=== PATIENT | female | born 1940 | race Caucasian/White ===

== ENCOUNTER → 2016-06-25 | Outpatient (CLI) | payer MEDICARE, OTHER | END | disposition home or self-care (01) | LOC: CVU 09:29 | PROVIDERS: ATTEND Internal Medicine Cardiovascular Disease | DX: I65.23 Occlusion and stenosis of bilateral carotid arteries (principal); E11.9 Type 2 diabetes mellitus without complications; I10 Essential (primary) hypertension; E78.5 Hyperlipidemia, unspecified | CPT/HCPCS: 93880 ==

== ENCOUNTER 2016-07-09 09:35 | Observation (INO) | payer MEDICARE, OTHER ==
[2016-07-08 13:20] LABS: BLOOD UREA NITROGEN 17 mg/dL (7-18)
[2016-07-08 14:16] VITALS: BP 198/82
[~2016-07-09] VITALS: Ht 154.9 cm; Wt 76.4 kg
[~2016-07-09 09:35] MED LIST: ACET-1600 PO; ASPI-496 PO; CALC-126 PO; CARV6.252 PO; CHOL10003 PO; CLON0.1T PO; DAPS25TA PO; HYDR25TA6 PO; INSU100C5 SQ-INSULIN; INSU100V8 SQ; LEVO137T2 PO; NAPR220C2 PO; NYST15CR2 TP; PARO25TA3 PO; VALS320T2 PO; VITA150T PO
[2016-07-09] MEDS ORDERED: SODIUM CHLORIDE 0.9% 1,000 ML IV SCH (09:39)
[2016-07-09] MEDS ORDERED: hydrALAzine 20 MG/ML, 1ML ONE (11:31)
[2016-07-09] MEDS ORDERED: hydrALAzine 20 MG/ML, 1ML IV ONE (12:00)
[2016-07-09] MEDS ORDERED: MIDAZOLAM 1 MG/ML, 5ML ONE (12:05)
[2016-07-09] MEDS ORDERED: FENTANYL PF 100 MCG/2ML ONE (12:05)
[2016-07-09] MEDS ORDERED: VERAPAMIL 2.5 MG/ML, 2ML ONE (12:06)
[2016-07-09] MEDS ORDERED: HEPARIN 1,000 UNITS/ML, 10ML ONE (12:06)
[2016-07-09] MEDS ORDERED: LIDOCAINE 2%, 20ML ONE (12:06)
[2016-07-09] MEDS ORDERED: BIVALIRUDIN 250 MG ONE (13:07)
[2016-07-09] MEDS ORDERED: TICAGRELOR 90 MG TABLET ONE (13:07)
[2016-07-09] MEDS ORDERED: FUROSEMIDE 40 MG/4 ML IV ONE (14:00)
[2016-07-09] MEDS: SODIUM CHLORIDE 0.9% 1,000 ML IV SCH ×2 (15:24→21:13)
[2016-07-09 16:30] VITALS: BP 112/55
[2016-07-09] MEDS: INSULIN ASPART 100 UNITS/ML, 3ML PEN LOW DOSE SS SQ-INSULIN SCH ×2 (17:36→21:00)
[2016-07-09 20:26] VITALS: BP 139/87
[2016-07-09] MEDS: INSULIN DETEMIR 100 UNITS/ML, PEN SQ-INSULIN SCH (21:12)
[2016-07-09] MEDS: TICAGRELOR 90 MG TABLET PO SCH (21:12)
[2016-07-09] MEDS ORDERED: ACETAMINOPHEN 325 MG TABLET PO PRN (21:30)
[2016-07-10 01:24] VITALS: BP 146/80
[2016-07-10 05:31] LABS: BLOOD UREA NITROGEN 19 mg/dL (7-18)
[2016-07-10] MEDS ORDERED: LEVOTHYROXINE 137 MCG TABLET PO SCH (06:00)
[2016-07-10 07:40] VITALS: BP 152/76
[2016-07-10] MEDS ORDERED: NAPROXEN 500 MG TABLET PO ONE (08:00)
[2016-07-10] MEDS ORDERED: POTASSIUM CHLORIDE 10 MEQ TABLET.ER PO SCH (08:00)
[2016-07-10] MEDS: TICAGRELOR 90 MG TABLET PO SCH (08:11)
[2016-07-10] MEDS: PAROXETINE 10 MG TABLET PO SCH ×2 (08:12→09:28)
[2016-07-10] MEDS: INSULIN DETEMIR 100 UNITS/ML, PEN SQ-INSULIN SCH (08:12)
[2016-07-10] MEDS: INSULIN ASPART 100 UNITS/ML, 3ML PEN LOW DOSE SS SQ-INSULIN SCH ×2 (08:13→12:19)
[2016-07-10] MEDS ORDERED: CHOLECALCIFEROL 1,000 UNIT TABLET PO SCH (09:00)
[2016-07-10] MEDS ORDERED: VALSARTAN 320 MG TABLET PO SCH (09:00)
[2016-07-10] MEDS ORDERED: FUROSEMIDE 40 MG TABLET PO SCH (09:00)
[2016-07-10] MEDS ORDERED: ISOSORBIDE MONONITRATE ER 30 MG TABLET PO SCH (09:00)
[2016-07-10] MEDS ORDERED: CARVEDILOL 6.25 MG TABLET PO SCH (09:00)
[2016-07-10] MEDS ORDERED: ASPIRIN 81 MG TABLET EC PO SCH (09:00)
[2016-07-10] MEDS ORDERED: TICA90TA PO (10:02)
[2016-07-10] MEDS ORDERED: ASPI-621 PO (10:02)
== END 2016-07-10 14:45 | disposition home or self-care (01) ==
LOC: CACL 09:35 → ORIP 13:48 → 5SO 15:29 → DCLOUNGE 07-10 13:48
PROVIDERS: ADMIT Internal Medicine Cardiovascular Disease; ATTEND Internal Medicine Cardiovascular Disease
DX: I25.119 Atherosclerotic heart disease of native coronary artery with unspecified angina pectoris (principal); I27.2 Other secondary pulmonary hypertension; I10 Essential (primary) hypertension; E11.9 Type 2 diabetes mellitus without complications; E78.2 Mixed hyperlipidemia; R07.89 Other chest pain
CPT/HCPCS: 36415; 71020; 80048; 82040; 82947; 82962; 85014; 85018; 85025; 85610; 85730; 93456; C1725; C1769; C1874; C1887; C1894; C9600; G0378; J0360; J0583; J1644; J1815; J1940; J2250; J3010; J3490; J7030; Q9967

== ENCOUNTER 2016-07-17 15:24 | Inpatient (IN) | payer MEDICARE, OTHER ==
[~2016-07-17] VITALS: Ht 154.9 cm; Wt 76.8 kg
[~2016-07-17 15:24] MED LIST changes: +ASPI-621 PO; +TICA90TA PO
[2016-07-17] MEDS ORDERED: SODIUM CHLORIDE FLUSH 10ML SYR IVF ONE (16:30)
[2016-07-17] MEDS ORDERED: MORPHINE SULFATE 4 MG/ML, 1ML IVPush PRN (17:00)
[2016-07-17] MEDS ORDERED: ONDANSETRON 2MG/ML, 2ML IVPush ONE (17:00)
[2016-07-17 17:02] LABS: BLOOD UREA NITROGEN 12 mg/dL (7-18)
[2016-07-17] MEDS ORDERED: MORPHINE SULFATE 4 MG/ML, 1ML ONE (17:02)
[2016-07-17] MEDS ORDERED: ONDANSETRON 2MG/ML, 2ML ONE (17:02)
[2016-07-17] MEDS ORDERED: OMNIPAQUE 350 MG/ML, 100ML BOTTLE ONE (19:52)
[2016-07-17] MEDS ORDERED: SODIUM CHLORIDE FLUSH 10ML SYR IVF PRN (21:30)
[2016-07-17 22:39] VITALS: BP 179/96
[2016-07-17] MEDS ORDERED: INSU100V8 SQ (22:46)
[2016-07-17 23:30] VITALS: BP 167/84
[2016-07-17] MEDS ORDERED: TEMAZEPAM 15 MG CAPSULE PO PRN (23:30)
[2016-07-17] MEDS ORDERED: LABETALOL 5MG/ML, 20ML IV PRN (23:30)
[2016-07-17] MEDS: INSULIN REGULAR 100 UNITS/ML, 3ML VIAL SQ-INSULIN SCH (23:53)
[2016-07-18] MEDS: TICAGRELOR 90 MG TABLET PO SCH ×3 (00:37→21:04)
[2016-07-18] MEDS: CARVEDILOL 6.25 MG TABLET PO SCH ×2 (00:38→16:49)
[2016-07-18] MEDS: ENOXAPARIN 40 MG/0.4 ML SQ SCH ×2 (00:38→23:54)
[2016-07-18] MEDS: INSULIN DETEMIR 100 UNITS/ML, PEN SQ-INSULIN SCH ×5 (00:39→23:53)
[2016-07-18] MEDS: ACETAMINOPHEN 325 MG TABLET PO PRN ×4 (02:05→21:04)
[2016-07-18 04:00] VITALS: BP 143/76
[2016-07-18 04:50] LABS: BLOOD UREA NITROGEN 12 mg/dL (7-18)
[2016-07-18] MEDS: LEVOTHYROXINE 137 MCG TABLET PO SCH (06:44)
[2016-07-18] MEDS: INSULIN REGULAR 100 UNITS/ML, 3ML VIAL SQ-INSULIN SCH ×5 (07:00→21:04)
[2016-07-18 08:57] VITALS: BP 131/79
[2016-07-18] MEDS ORDERED: Paroxetine Hcl PO SCH (09:00)
[2016-07-18] MEDS ORDERED: CARVEDILOL 6.25 MG TABLET PO SCH (09:00)
[2016-07-18] MEDS ORDERED: TICAGRELOR 90 MG TABLET PO SCH (09:00)
[2016-07-18 09:23] LABS: IS PT STATUS REG ER OR PRE ER? NO
[2016-07-18] MEDS: CALCIUM/VITAMIN D3 250-125 TABLET PO SCH (10:53)
[2016-07-18] MEDS: VALSARTAN 320 MG TABLET PO SCH (10:53)
[2016-07-18] MEDS: FUROSEMIDE 40 MG/4 ML IV SCH (10:53)
[2016-07-18] MEDS: DAPSONE 100 MG TABLET PO SCH (10:54)
[2016-07-18] MEDS: CHOLECALCIFEROL 1,000 UNIT TABLET PO SCH (10:54)
[2016-07-18] MEDS: MULTIVITS,STRESS FORMULA 1 TABLET PO SCH (10:54)
[2016-07-18] MEDS: ASPIRIN 81 MG TABLET EC PO SCH (10:54)
[2016-07-18] MEDS: NYSTATIN/TRIAMCINOLONE CRM 15GM TP SCH ×2 (11:38→21:04)
[2016-07-18] MEDS: PAROXETINE 10 MG TABLET PO SCH ×2 (11:39→17:00)
[2016-07-18 14:20] VITALS: BP 188/78
[2016-07-18 14:22] VITALS: BP 136/75
[2016-07-18] MEDS ORDERED: DEXTROSE 50%, 50ML SYRINGE ONE (16:23)
[2016-07-18] MEDS: DEXTROSE 50%, 50ML SYRINGE IVPush PRN (16:25)
[2016-07-18] MEDS ORDERED: GLUCAGON 1 MG IM PRN (16:30)
[2016-07-18] MEDS ORDERED: DEXTROSE 4 GM TAB.CHEW PO PRN (16:30)
[2016-07-18 20:20] VITALS: BP 168/78
[2016-07-18] MEDS: SODIUM CHLORIDE FLUSH 10ML SYR IVF SCH (21:07)
[2016-07-19 03:30] VITALS: BP 168/80
[2016-07-19] MEDS: ACETAMINOPHEN 325 MG TABLET PO PRN ×3 (04:50→21:42)
[2016-07-19] MEDS: DOCUSATE 100 MG CAPSULE PO PRN (04:50)
[2016-07-19 06:00] LABS: BLOOD UREA NITROGEN 16 mg/dL (7-18)
[2016-07-19] MEDS: CHOLECALCIFEROL 1,000 UNIT TABLET PO SCH (08:19)
[2016-07-19] MEDS: TICAGRELOR 90 MG TABLET PO SCH ×2 (08:20→21:31)
[2016-07-19] MEDS: CALCIUM/VITAMIN D3 250-125 TABLET PO SCH (08:20)
[2016-07-19] MEDS: ASPIRIN 81 MG TABLET EC PO SCH (08:20)
[2016-07-19] MEDS: VALSARTAN 320 MG TABLET PO SCH (08:20)
[2016-07-19] MEDS: MULTIVITS,STRESS FORMULA 1 TABLET PO SCH (08:20)
[2016-07-19] MEDS: SODIUM CHLORIDE FLUSH 10ML SYR IVF SCH ×2 (08:21→21:31)
[2016-07-19] MEDS: FUROSEMIDE 40 MG/4 ML IV SCH (08:21)
[2016-07-19] MEDS: DAPSONE 100 MG TABLET PO SCH (08:21)
[2016-07-19] MEDS: NYSTATIN/TRIAMCINOLONE CRM 15GM TP SCH ×2 (08:22→21:32)
[2016-07-19] MEDS: INSULIN DETEMIR 100 UNITS/ML, PEN SQ-INSULIN SCH ×2 (08:23→21:30)
[2016-07-19] MEDS: PAROXETINE 25 MG HOMEMEDPO SCH ×2 (08:24→18:40)
[2016-07-19] MEDS: INSULIN REGULAR 100 UNITS/ML, 3ML VIAL SQ-INSULIN SCH ×4 (08:24→21:31)
[2016-07-19] MEDS: LEVOTHYROXINE 137 MCG TABLET PO SCH (08:27)
[2016-07-19 08:30] VITALS: BP 156/82
[2016-07-19 14:30] VITALS: BP 138/80
[2016-07-19] MEDS: CARVEDILOL 6.25 MG TABLET PO SCH (18:39)
[2016-07-19 20:00] VITALS: BP 142/78
[2016-07-19] MEDS: ENOXAPARIN 40 MG/0.4 ML SQ SCH (21:30)
[2016-07-20 02:00] VITALS: BP 106/70
[2016-07-20] MEDS: LEVOTHYROXINE 137 MCG TABLET PO SCH (06:16)
[2016-07-20 06:29] LABS: BLOOD UREA NITROGEN 23 mg/dL (7-18)
[2016-07-20 07:11] VITALS: BP 126/75
[2016-07-20] MEDS: INSULIN REGULAR 100 UNITS/ML, 3ML VIAL SQ-INSULIN SCH ×4 (08:54→21:00)
[2016-07-20] MEDS: PAROXETINE 25 MG HOMEMEDPO SCH ×2 (08:55→17:10)
[2016-07-20] MEDS: CHOLECALCIFEROL 1,000 UNIT TABLET PO SCH (08:56)
[2016-07-20] MEDS: CALCIUM/VITAMIN D3 250-125 TABLET PO SCH (08:56)
[2016-07-20] MEDS: TICAGRELOR 90 MG TABLET PO SCH ×2 (08:56→21:37)
[2016-07-20] MEDS: MULTIVITS,STRESS FORMULA 1 TABLET PO SCH (08:56)
[2016-07-20] MEDS: VALSARTAN 320 MG TABLET PO SCH (08:56)
[2016-07-20] MEDS: FUROSEMIDE 40 MG/4 ML IV SCH (08:57)
[2016-07-20] MEDS: SODIUM CHLORIDE FLUSH 10ML SYR IVF SCH ×2 (08:57→21:37)
[2016-07-20] MEDS: ASPIRIN 81 MG TABLET EC PO SCH (08:57)
[2016-07-20] MEDS: DAPSONE 100 MG TABLET PO SCH (08:57)
[2016-07-20] MEDS: NYSTATIN/TRIAMCINOLONE CRM 15GM TP SCH ×2 (08:59→21:00)
[2016-07-20] MEDS: INSULIN DETEMIR 100 UNITS/ML, PEN SQ-INSULIN SCH ×3 (09:03→21:38)
[2016-07-20] MEDS: ACETAMINOPHEN 325 MG TABLET PO PRN ×2 (11:36→21:37)
[2016-07-20] MEDS ORDERED: ALUMINUM/MAG/SIMETHICONE 30 ML UDC PO PRN (12:30)
[2016-07-20] MEDS ORDERED: INSULIN REGULAR 100 UNITS/ML, 3ML VIAL SQ-INSULIN ONE (15:00)
[2016-07-20 15:55] VITALS: BP 125/73
[2016-07-20] MEDS: CARVEDILOL 6.25 MG TABLET PO SCH (17:09)
[2016-07-20 19:30] VITALS: BP 112/71
[2016-07-20] MEDS: ENOXAPARIN 40 MG/0.4 ML SQ SCH (21:37)
[2016-07-21 02:35] VITALS: BP 123/77
[2016-07-21] MEDS: LEVOTHYROXINE 137 MCG TABLET PO SCH (06:26)
[2016-07-21 07:44] VITALS: BP 134/74
[2016-07-21] MEDS: INSULIN REGULAR 100 UNITS/ML, 3ML VIAL SQ-INSULIN SCH ×4 (08:48→20:38)
[2016-07-21] MEDS: SODIUM CHLORIDE FLUSH 10ML SYR IVF SCH ×2 (09:00→20:39)
[2016-07-21] MEDS: DAPSONE 100 MG TABLET PO SCH (09:00)
[2016-07-21] MEDS ORDERED: FENTANYL PF 100 MCG/2ML ONE (09:08)
[2016-07-21] MEDS ORDERED: MIDAZOLAM 1 MG/ML, 5ML ONE (09:08)
[2016-07-21] MEDS ORDERED: PROPOFOL 10 MG/ML, 20ML ONE (09:18)
[2016-07-21] MEDS: MULTIVITS,STRESS FORMULA 1 TABLET PO SCH (12:02)
[2016-07-21] MEDS: TICAGRELOR 90 MG TABLET PO SCH ×2 (12:02→20:38)
[2016-07-21] MEDS: CALCIUM/VITAMIN D3 250-125 TABLET PO SCH (12:03)
[2016-07-21] MEDS: CARVEDILOL 6.25 MG TABLET PO SCH ×2 (12:03→17:45)
[2016-07-21] MEDS: VALSARTAN 320 MG TABLET PO SCH (12:03)
[2016-07-21] MEDS: CHOLECALCIFEROL 1,000 UNIT TABLET PO SCH (12:03)
[2016-07-21] MEDS: ASPIRIN 81 MG TABLET EC PO SCH (12:03)
[2016-07-21] MEDS: FUROSEMIDE 40 MG/4 ML IV SCH (12:04)
[2016-07-21] MEDS: PAROXETINE 25 MG HOMEMEDPO SCH ×2 (12:06→18:00)
[2016-07-21 13:46] VITALS: BP 126/77
[2016-07-21] MEDS: NYSTATIN/TRIAMCINOLONE CRM 15GM TP SCH ×2 (16:57→20:38)
[2016-07-21] MEDS: DEXTROSE 50%, 50ML SYRINGE IVPush PRN (17:09)
[2016-07-21] MEDS ORDERED: INSULIN ASPART 100 UNITS/ML, PEN SQ-INSULIN SCH (17:30)
[2016-07-21 18:49] VITALS: BP 133/76
[2016-07-21] MEDS: ACETAMINOPHEN 325 MG TABLET PO PRN (20:38)
[2016-07-21] MEDS: INSULIN DETEMIR 100 UNITS/ML, PEN SQ-INSULIN SCH (20:38)
[2016-07-21] MEDS: ENOXAPARIN 40 MG/0.4 ML SQ SCH (20:38)
[2016-07-21] MEDS: NITROGLYCERIN 0.4 MG BOTTLE (25 TABS) SL PRN ×3 (22:27→22:37)
[2016-07-21] MEDS ORDERED: NITROGLYCERIN 0.4 MG/SPRAY SL PRN (22:30)
[2016-07-21] MEDS ORDERED: MORPHINE SULFATE 4 MG/ML, 1ML IVPush STA (22:59)
[2016-07-21] MEDS ORDERED: MORPHINE SULFATE 4 MG/ML, 1ML ONE (23:01)
[2016-07-22] MEDS ORDERED: NITROGLYCERIN/D5W PMX 250 ML IV PRN
[2016-07-22] MEDS ORDERED: MORPHINE SULFATE 4 MG/ML, 1ML IVPush ONE (06:00)
[2016-07-22] MEDS: LEVOTHYROXINE 137 MCG TABLET PO SCH (06:20)
[2016-07-22] MEDS: INSULIN REGULAR 100 UNITS/ML, 3ML VIAL SQ-INSULIN SCH (06:24)
[2016-07-22 06:39] VITALS: BP 152/58
[2016-07-22 06:42] LABS: BLOOD UREA NITROGEN 27 mg/dL (7-18)
[2016-07-22 06:46] LABS: ASPARTATE AMINO TRANSFERASE 28 U/L (15-37)
[2016-07-22] MEDS ORDERED: INSULIN DETEMIR 100 UNITS/ML, PEN SQ-INSULIN STA (07:39)
[2016-07-22 08:01] LABS: IS PT STATUS REG ER OR PRE ER? NO
[2016-07-22] MEDS ORDERED: MAALOX/HYOSCYAMINE/LIDOCAINE 45 ML BOTTLE PO ONE (08:30)
[2016-07-22] MEDS ORDERED: ONDANSETRON 2MG/ML, 2ML ONE (08:43)
[2016-07-22] MEDS: MORPHINE SULFATE 4 MG/ML, 1ML IVPush PRN ×2 (08:51→09:09)
[2016-07-22] MEDS: CARVEDILOL 6.25 MG TABLET PO SCH ×2 (09:00→17:24)
[2016-07-22] MEDS: CHOLECALCIFEROL 1,000 UNIT TABLET PO SCH (09:00)
[2016-07-22] MEDS: ONDANSETRON 2MG/ML, 2ML IVPush PRN (09:06)
[2016-07-22] MEDS: PAROXETINE 25 MG HOMEMEDPO SCH ×2 (09:12→21:00)
[2016-07-22] MEDS: TICAGRELOR 90 MG TABLET PO SCH ×2 (09:13→20:39)
[2016-07-22] MEDS: FUROSEMIDE 40 MG/4 ML IV SCH (09:13)
[2016-07-22] MEDS: SODIUM CHLORIDE FLUSH 10ML SYR IVF SCH (09:13)
[2016-07-22] MEDS: ASPIRIN 81 MG TABLET EC PO SCH (09:14)
[2016-07-22] MEDS: DAPSONE 100 MG TABLET PO SCH (09:15)
[2016-07-22] MEDS: VALSARTAN 320 MG TABLET PO SCH (09:16)
[2016-07-22] MEDS: INSULIN DETEMIR 100 UNITS/ML, PEN SQ-INSULIN SCH (09:17)
[2016-07-22] MEDS: NYSTATIN/TRIAMCINOLONE CRM 15GM TP SCH (09:18)
[2016-07-22] MEDS: CALCIUM/VITAMIN D3 250-125 TABLET PO SCH (09:26)
[2016-07-22] MEDS: MULTIVITS,STRESS FORMULA 1 TABLET PO SCH (09:27)
[2016-07-22] MEDS ORDERED: REGULAR INSULIN 62.5 UNITS in SODIUM CHLORIDE 0.9% 249.375 ML IV PRN (09:30)
[2016-07-22 11:32] LABS: IS PT STATUS REG ER OR PRE ER? NO
[2016-07-22] MEDS ORDERED: FENTANYL PF 100 MCG/2ML ONE (12:11)
[2016-07-22] MEDS ORDERED: VERAPAMIL 2.5 MG/ML, 2ML ONE (12:11)
[2016-07-22] MEDS ORDERED: MIDAZOLAM 1 MG/ML, 5ML ONE (12:11)
[2016-07-22] MEDS ORDERED: NITROGLYCERIN 5 MG/ML, 10ML ONE (12:11)
[2016-07-22] MEDS ORDERED: HEPARIN 1,000 UNITS/ML, 10ML ONE (12:12)
[2016-07-22] MEDS ORDERED: LIDOCAINE 2%, 20ML ONE (12:12)
[2016-07-22 15:10] LABS: BLOOD UREA NITROGEN 35 mg/dL (7-18)
[2016-07-22] MEDS: ENOXAPARIN 30 MG/0.3 ML SQ SCH (20:26)
[2016-07-22 21:27] LABS: BLOOD UREA NITROGEN 39 mg/dL (7-18)
[2016-07-23] MEDS: INSULIN DETEMIR 100 UNITS/ML, PEN SQ-INSULIN SCH ×3 (01:28→20:08)
[2016-07-23] MEDS: SODIUM CHLORIDE FLUSH 10ML SYR IVF SCH ×3 (01:30→20:06)
[2016-07-23] MEDS: NYSTATIN/TRIAMCINOLONE CRM 15GM TP SCH ×3 (01:30→20:08)
[2016-07-23] MEDS: ATORVASTATIN 40 MG TABLET PO SCH ×2 (01:30→20:07)
[2016-07-23] MEDS ORDERED: INSULIN ASPART 100 UNITS/ML, PEN SQ-INSULIN SCH (02:00)
[2016-07-23] MEDS: INSULIN ASPART 100 UNITS/ML, PEN SQ-INSULIN SCH ×7 (02:44→23:00)
[2016-07-23 04:00] VITALS: BP 146/54
[2016-07-23 04:58] LABS: BLOOD UREA NITROGEN 44 mg/dL (7-18)
[2016-07-23] MEDS: LEVOTHYROXINE 137 MCG TABLET PO SCH (06:28)
[2016-07-23] MEDS: CARVEDILOL 6.25 MG TABLET PO SCH (07:35)
[2016-07-23] MEDS: PAROXETINE 25 MG HOMEMEDPO SCH ×2 (09:00→20:05)
[2016-07-23] MEDS: DAPSONE 100 MG TABLET PO SCH (09:00)
[2016-07-23] MEDS: VALSARTAN 320 MG TABLET PO SCH (09:00)
[2016-07-23] MEDS: TICAGRELOR 90 MG TABLET PO SCH ×2 (09:27→20:06)
[2016-07-23] MEDS: MULTIVITS,STRESS FORMULA 1 TABLET PO SCH (09:27)
[2016-07-23] MEDS: FUROSEMIDE 40 MG/4 ML IV SCH (09:27)
[2016-07-23] MEDS: ASPIRIN 81 MG TABLET EC PO SCH (09:28)
[2016-07-23] MEDS: CALCIUM/VITAMIN D3 250-125 TABLET PO SCH (09:29)
[2016-07-23] MEDS: CHOLECALCIFEROL 1,000 UNIT TABLET PO SCH (09:30)
[2016-07-23] MEDS: MORPHINE SULFATE 4 MG/ML, 1ML IVPush PRN (12:42)
[2016-07-23] MEDS: ISOSORBIDE MONONITRATE ER 30 MG TABLET PO SCH (15:18)
[2016-07-23] MEDS: CARVEDILOL 12.5 MG TABLET PO SCH (17:00)
[2016-07-23 17:51] VITALS: BP 89/54
[2016-07-23 18:40] VITALS: BP 95/57
[2016-07-23] MEDS: ENOXAPARIN 30 MG/0.3 ML SQ SCH (20:05)
[2016-07-23] MEDS: ACETAMINOPHEN 325 MG TABLET PO PRN (20:08)
[2016-07-23] MEDS ORDERED: INSULIN DETEMIR 100 UNITS/ML, PEN SQ-INSULIN SCH (21:00)
[2016-07-24 01:30] VITALS: BP 113/67
[2016-07-24] MEDS: INSULIN ASPART 100 UNITS/ML, PEN SQ-INSULIN SCH ×6 (03:18→23:00)
[2016-07-24 06:06] LABS: BLOOD UREA NITROGEN 61 mg/dL (7-18)
[2016-07-24] MEDS: LEVOTHYROXINE 137 MCG TABLET PO SCH (06:23)
[2016-07-24 07:09] VITALS: BP_SYST 101; BP_SYST 97; BP_DIAS 62
[2016-07-24] MEDS: INSULIN DETEMIR 100 UNITS/ML, PEN SQ-INSULIN SCH ×2 (08:18→20:41)
[2016-07-24] MEDS: ASPIRIN 81 MG TABLET EC PO SCH (08:19)
[2016-07-24] MEDS: CHOLECALCIFEROL 1,000 UNIT TABLET PO SCH (08:19)
[2016-07-24] MEDS: NYSTATIN/TRIAMCINOLONE CRM 15GM TP SCH ×2 (08:20→20:41)
[2016-07-24] MEDS: CALCIUM/VITAMIN D3 250-125 TABLET PO SCH (08:20)
[2016-07-24] MEDS: VALSARTAN 320 MG TABLET PO SCH (08:20)
[2016-07-24] MEDS: CARVEDILOL 12.5 MG TABLET PO SCH ×2 (08:20→17:00)
[2016-07-24] MEDS: TICAGRELOR 90 MG TABLET PO SCH ×2 (08:20→20:40)
[2016-07-24] MEDS: MULTIVITS,STRESS FORMULA 1 TABLET PO SCH (08:20)
[2016-07-24] MEDS: FUROSEMIDE 40 MG TABLET PO SCH (08:20)
[2016-07-24] MEDS: ISOSORBIDE MONONITRATE ER 30 MG TABLET PO SCH (08:20)
[2016-07-24] MEDS: PAROXETINE 25 MG HOMEMEDPO SCH ×2 (08:21→20:39)
[2016-07-24] MEDS: DAPSONE 100 MG TABLET PO SCH (08:21)
[2016-07-24] MEDS: SODIUM CHLORIDE FLUSH 10ML SYR IVF SCH ×2 (08:21→20:40)
[2016-07-24] MEDS: ACETAMINOPHEN 325 MG TABLET PO PRN ×2 (09:55→20:41)
[2016-07-24] MEDS ORDERED: SODIUM CHLORIDE 0.9%, 500ML IVBOLUS ONE (13:00)
[2016-07-24 13:18] VITALS: BP 89/54
[2016-07-24 14:40] VITALS: BP 100/62
[2016-07-24 17:49] VITALS: BP 98/62
[2016-07-24] MEDS: ONDANSETRON 2MG/ML, 2ML IVPush PRN (17:53)
[2016-07-24 19:53] VITALS: BP 122/70
[2016-07-24] MEDS: ENOXAPARIN 30 MG/0.3 ML SQ SCH (20:39)
[2016-07-24] MEDS: ATORVASTATIN 40 MG TABLET PO SCH (20:40)
[2016-07-25 03:00] VITALS: BP 125/70
[2016-07-25] MEDS: INSULIN ASPART 100 UNITS/ML, PEN SQ-INSULIN SCH ×3 (03:00→12:25)
[2016-07-25 05:32] LABS: BLOOD UREA NITROGEN 68 mg/dL (7-18)
[2016-07-25] MEDS: LEVOTHYROXINE 137 MCG TABLET PO SCH (06:27)
[2016-07-25] MEDS: ACETAMINOPHEN 325 MG TABLET PO PRN (06:28)
[2016-07-25] MEDS: DAPSONE 100 MG TABLET PO SCH (09:00)
[2016-07-25] MEDS ORDERED: VALSARTAN 160 MG TABLET PO SCH (09:00)
[2016-07-25] MEDS: NYSTATIN/TRIAMCINOLONE CRM 15GM TP SCH (09:00)
[2016-07-25] MEDS: FUROSEMIDE 40 MG TABLET PO SCH (09:00)
[2016-07-25] MEDS ORDERED: VALSARTAN 80 MG TABLET PO SCH (09:00)
[2016-07-25] MEDS: PAROXETINE 25 MG HOMEMEDPO SCH (09:00)
[2016-07-25] MEDS ORDERED: FUROSEMIDE 40 MG/4 ML ONE (09:15)
[2016-07-25 09:17] VITALS: BP 117/70
[2016-07-25] MEDS: ISOSORBIDE MONONITRATE ER 30 MG TABLET PO SCH (09:19)
[2016-07-25] MEDS: CHOLECALCIFEROL 1,000 UNIT TABLET PO SCH (09:19)
[2016-07-25] MEDS: INSULIN DETEMIR 100 UNITS/ML, PEN SQ-INSULIN SCH (09:19)
[2016-07-25] MEDS: ASPIRIN 81 MG TABLET EC PO SCH (09:19)
[2016-07-25] MEDS: MULTIVITS,STRESS FORMULA 1 TABLET PO SCH (09:19)
[2016-07-25] MEDS: TICAGRELOR 90 MG TABLET PO SCH (09:19)
[2016-07-25] MEDS: CALCIUM/VITAMIN D3 250-125 TABLET PO SCH (09:20)
[2016-07-25] MEDS: CARVEDILOL 12.5 MG TABLET PO SCH (09:20)
[2016-07-25] MEDS: SODIUM CHLORIDE FLUSH 10ML SYR IVF SCH (09:20)
[2016-07-25] MEDS ORDERED: FUROSEMIDE 40 MG/4 ML IV ONE (09:30)
[2016-07-25] MEDS ORDERED: FURO40TA6 PO (12:18)
[2016-07-25] MEDS ORDERED: VALS80TA3 PO (12:18)
[2016-07-25] MEDS ORDERED: ISOS30TA8 PO (12:18)
[2016-07-25] MEDS ORDERED: CARV12.543 PO (12:18)
[2016-07-25 12:24] VITALS: BP 99/63
[2016-07-25] MEDS: DOCUSATE 100 MG CAPSULE PO PRN (12:24)
[2016-07-25 12:38] VITALS: BP 99/60
== END 2016-07-25 15:15 | DRG 286 ==
LOC: ED 17:17 → EDIP 21:01 → 5SO 22:24 → CCU 07-22 00:09 → 5SO 07-23 17:45
PROVIDERS: ADMIT Internal Medicine; ATTEND Internal Medicine
PROC: B246ZZ4 Ultrasonography of Right and Left Heart, Transesophageal (ICD-10-PCS; 2016-07-21)
PROC: 4A023N7 Measurement of Cardiac Sampling and Pressure, Left Heart, Percutaneous Approach (ICD-10-PCS; principal; 2016-07-22)
PROC: B2151ZZ Fluoroscopy of Left Heart using Low Osmolar Contrast (ICD-10-PCS; 2016-07-22)
PROC: B2111ZZ Fluoroscopy of Multiple Coronary Arteries using Low Osmolar Contrast (ICD-10-PCS; 2016-07-22)
DX: I11.0 Hypertensive heart disease with heart failure (principal); N17.0 Acute kidney failure with tubular necrosis; E87.2 Acidosis; Z88.1 Allergy status to other antibiotic agents; I25.10 Atherosclerotic heart disease of native coronary artery without angina pectoris; I27.2 Other secondary pulmonary hypertension; Z79.4 Long term (current) use of insulin; D64.9 Anemia, unspecified; E11.65 Type 2 diabetes mellitus with hyperglycemia; I50.43 Acute on chronic combined systolic (congestive) and diastolic (congestive) heart failure; E78.5 Hyperlipidemia, unspecified; I05.2 Rheumatic mitral stenosis with insufficiency; Z66 Do not resuscitate; Z96.641 Presence of right artificial hip joint; Z83.3 Family history of diabetes mellitus; Z87.891 Personal history of nicotine dependence; Z90.49 Acquired absence of other specified parts of digestive tract; Z95.5 Presence of coronary angioplasty implant and graft; Z90.710 Acquired absence of both cervix and uterus; Z88.8 Allergy status to other drugs, medicaments and biological substances; Z88.2 Allergy status to sulfonamides
CPT/HCPCS: 36415; 71010; 71020; 71275; 80048; 80053; 82040; 82947; 82962; 83735; 83880; 84484; 85025; 85520; 85610; 85730; 87081; 93005; 93306; 93308; 93312; 93321; 93325; 93458; 93970; 96374; 96375; C1894; J1644; J1650; J1815; J1940; J2250; J2405; J2704; J3010; J3490; Q9967; J7040

== ENCOUNTER 2016-10-10 13:32 | Inpatient (IN) | payer MEDICARE, OTHER ==
[~2016-10-10] VITALS: Ht 154.9 cm; Wt 68.7 kg
[~2016-10-10 13:32] MED LIST changes: +CARV12.543 PO; +FURO40TA6 PO; +ISOS30TA8 PO; +VALS80TA3 PO
[2016-10-10] MEDS ORDERED: SODIUM CHLORIDE FLUSH 10ML SYR IVF ONE (14:00)
[2016-10-10 14:18] LABS: ASPARTATE AMINO TRANSFERASE 22 U/L (15-37); BLOOD UREA NITROGEN 21 mg/dL (7-18)
[2016-10-10 14:23] LABS: IS PT STATUS REG ER OR PRE ER? YES
[2016-10-10] MEDS ORDERED: morphine SULFATE 10 MG/ML, 1ML IVPush PRN (16:30)
[2016-10-10] MEDS ORDERED: INSULIN ASPART 100 UNITS/ML, PEN SQ-INSULIN SCH (16:30)
[2016-10-10] MEDS ORDERED: DEXTROSE 50%, 50ML SYRINGE IVPush PRN (16:30)
[2016-10-10] MEDS ORDERED: DEXTROSE 4 GM TAB.CHEW PO PRN (16:30)
[2016-10-10] MEDS ORDERED: BISACODYL 10 MG SUPP PR PRN (16:30)
[2016-10-10] MEDS ORDERED: DOCUSATE 100 MG CAPSULE PO PRN (16:30)
[2016-10-10] MEDS ORDERED: INSULIN GLARGINE HUM REC ANLOG 8 UNIT SQ SCH (16:30)
[2016-10-10] MEDS ORDERED: GLUCAGON 1 MG IM PRN (16:30)
[2016-10-10] MEDS ORDERED: LABETALOL 5MG/ML, 20ML IVPush PRN (16:30)
[2016-10-10] MEDS ORDERED: ONDANSETRON 2MG/ML, 2ML IVPush PRN (16:30)
[2016-10-10] MEDS ORDERED: ONDANSETRON ODT 4 MG PO PRN (16:30)
[2016-10-10] MEDS ORDERED: POLYETHYLENE GLYCOL 17 GM PACKET PO PRN (16:30)
[2016-10-10 16:47] VITALS: BP 166/72
[2016-10-10] MEDS: SODIUM CHLORIDE FLUSH 10ML SYR IVF SCH (20:07)
[2016-10-10] MEDS: TICAGRELOR 90 MG TABLET PO SCH (20:08)
[2016-10-10 20:24] LABS: IS PT STATUS REG ER OR PRE ER? NO
[2016-10-10 20:30] VITALS: BP 159/79
[2016-10-10] MEDS: INSULIN REGULAR 100 UNITS/ML, 3ML VIAL SQ-INSULIN SCH (20:47)
[2016-10-10] MEDS: PAROXETINE 10 MG TABLET PO SCH (20:47)
[2016-10-10] MEDS: HEPARIN 5,000 UNITS/ML, 1ML SQ SCH (20:48)
[2016-10-10] MEDS ORDERED: INSULIN DETEMIR 100 UNITS/ML, PEN SQ-INSULIN SCH (21:00)
[2016-10-10] MEDS: ACETAMINOPHEN 325 MG TABLET PO PRN (22:46)
[2016-10-11 01:35] VITALS: BP 146/80
[2016-10-11 02:48] LABS: BLOOD UREA NITROGEN 17 mg/dL (7-18)
[2016-10-11 02:51] LABS: ASPARTATE AMINO TRANSFERASE 24 U/L (15-37)
[2016-10-11 02:55] LABS: IS PT STATUS REG ER OR PRE ER? NO
[2016-10-11] MEDS ORDERED: POTASSIUM CHLORIDE 20 MEQ TAB.ER.PRT PO ONE (03:30)
[2016-10-11] MEDS: HEPARIN 5,000 UNITS/ML, 1ML SQ SCH ×3 (04:04→20:18)
[2016-10-11] MEDS: LEVOTHYROXINE 137 MCG TABLET PO SCH (06:28)
[2016-10-11] MEDS: INSULIN REGULAR 100 UNITS/ML, 3ML VIAL SQ-INSULIN SCH (07:00)
[2016-10-11] MEDS: SODIUM CHLORIDE FLUSH 10ML SYR IVF SCH ×2 (08:15→21:00)
[2016-10-11] MEDS: POTASSIUM CHLORIDE 20 MEQ TAB.ER.PRT PO SCH ×2 (08:15→16:07)
[2016-10-11] MEDS: DAPSONE 100 MG TABLET PO SCH (08:15)
[2016-10-11] MEDS: FUROSEMIDE 40 MG TABLET PO SCH (08:16)
[2016-10-11] MEDS: CHOLECALCIFEROL 1,000 UNIT TABLET PO SCH (08:16)
[2016-10-11] MEDS: PAROXETINE 10 MG TABLET PO SCH ×2 (08:16→20:19)
[2016-10-11] MEDS: ASPIRIN 81 MG TABLET EC PO SCH (08:16)
[2016-10-11] MEDS: ISOSORBIDE MONONITRATE ER 30 MG TABLET PO SCH (08:16)
[2016-10-11] MEDS: [UNRECOGNIZED DRUG - OTHER] SQ SCH (08:17)
[2016-10-11] MEDS: INSULIN GLARGINE SQ SCH (08:17)
[2016-10-11] MEDS: NYSTATIN/TRIAMCINOLONE CRM 15GM TP SCH (08:19)
[2016-10-11 08:21] VITALS: BP 155/77
[2016-10-11] MEDS: TICAGRELOR 90 MG TABLET PO SCH ×2 (08:31→20:18)
[2016-10-11] MEDS ORDERED: INSULIN DETEMIR 100 UNITS/ML, PEN SQ-INSULIN SCH (09:00)
[2016-10-11] MEDS: METOPROLOL TARTRATE 25 MG TABLET PO SCH ×2 (09:35→20:18)
[2016-10-11] MEDS ORDERED: INSULIN ASPART 100 UNITS/ML, PEN SQ-INSULIN SCH (11:00)
[2016-10-11] MEDS ORDERED: NOVOLOG SQ SCH (12:00)
[2016-10-11] MEDS ORDERED: [UNRECOGNIZED DRUG - OTHER] SQ SCH (12:00)
[2016-10-11] MEDS: ACETAMINOPHEN 325 MG TABLET PO PRN (13:02)
[2016-10-11 14:11] VITALS: BP 119/65
[2016-10-11] MEDS: [UNRECOGNIZED DRUG - OTHER] SQ SCH ×2 (17:00→21:00)
[2016-10-11] MEDS: NOVOLOG SQ SCH ×2 (17:00→21:00)
[2016-10-11 19:58] VITALS: BP 127/72
[2016-10-11] MEDS ORDERED: INSULIN GLARGINE SQ SCH (21:00)
[2016-10-11] MEDS ORDERED: [UNRECOGNIZED DRUG - OTHER] SQ SCH (21:00)
[2016-10-12 02:33] VITALS: BP 129/68
[2016-10-12 05:30] LABS: BLOOD UREA NITROGEN 21 mg/dL (7-18)
[2016-10-12] MEDS: METOPROLOL TARTRATE 25 MG TABLET PO SCH (05:43)
[2016-10-12] MEDS: LEVOTHYROXINE 137 MCG TABLET PO SCH (05:43)
[2016-10-12] MEDS: HEPARIN 5,000 UNITS/ML, 1ML SQ SCH (05:44)
[2016-10-12] MEDS: SODIUM CHLORIDE FLUSH 10ML SYR IVF SCH (08:07)
[2016-10-12] MEDS: CHOLECALCIFEROL 1,000 UNIT TABLET PO SCH (08:08)
[2016-10-12] MEDS: TICAGRELOR 90 MG TABLET PO SCH (08:09)
[2016-10-12] MEDS: FUROSEMIDE 40 MG TABLET PO SCH (08:09)
[2016-10-12] MEDS: ASPIRIN 81 MG TABLET EC PO SCH (08:09)
[2016-10-12] MEDS: ISOSORBIDE MONONITRATE ER 30 MG TABLET PO SCH (08:09)
[2016-10-12] MEDS: INSULIN GLARGINE SQ SCH (08:09)
[2016-10-12] MEDS: PAROXETINE 10 MG TABLET PO SCH (08:09)
[2016-10-12] MEDS: DAPSONE 100 MG TABLET PO SCH (08:09)
[2016-10-12] MEDS: [UNRECOGNIZED DRUG - OTHER] SQ SCH (08:09)
[2016-10-12] MEDS: [UNRECOGNIZED DRUG - OTHER] SQ SCH (08:12)
[2016-10-12] MEDS: NOVOLOG SQ SCH (08:12)
[2016-10-12] MEDS: NYSTATIN/TRIAMCINOLONE CRM 15GM TP SCH (08:15)
[2016-10-12 08:16] VITALS: BP 129/74
[2016-10-12] MEDS ORDERED: METO25TA35 PO (08:39)
== END 2016-10-12 12:11 | disposition home or self-care (01) | DRG 291 ==
LOC: ED 14:16 → EDIP 15:21 → 5SO 16:19
PROVIDERS: ADMIT Internal Medicine; ATTEND Internal Medicine
DX: I11.0 Hypertensive heart disease with heart failure (principal); N17.0 Acute kidney failure with tubular necrosis; I25.119 Atherosclerotic heart disease of native coronary artery with unspecified angina pectoris; I50.32 Chronic diastolic (congestive) heart failure; D64.9 Anemia, unspecified; E03.9 Hypothyroidism, unspecified; E11.649 Type 2 diabetes mellitus with hypoglycemia without coma; E87.6 Hypokalemia; N18.9 Chronic kidney disease, unspecified; E11.22 Type 2 diabetes mellitus with diabetic chronic kidney disease; I27.2 Other secondary pulmonary hypertension; Z96.641 Presence of right artificial hip joint; I05.0 Rheumatic mitral stenosis; Z66 Do not resuscitate; Z79.4 Long term (current) use of insulin; Z83.3 Family history of diabetes mellitus; Z87.891 Personal history of nicotine dependence; Z95.5 Presence of coronary angioplasty implant and graft; Z88.6 Allergy status to analgesic agent; Z88.1 Allergy status to other antibiotic agents; Z88.2 Allergy status to sulfonamides; Z88.8 Allergy status to other drugs, medicaments and biological substances; Z90.49 Acquired absence of other specified parts of digestive tract; Z90.710 Acquired absence of both cervix and uterus; Z82.49 Family history of ischemic heart disease and other diseases of the circulatory system
CPT/HCPCS: 36415; 71010; 80048; 80053; 82962; 83735; 84100; 84484; 85025; 93005; 99285; J1644; J1815

== ENCOUNTER 2017-10-14 15:14 | Observation (INO) | payer MEDICARE, OTHER ==
[~2017-10-14] VITALS: Ht 154.9 cm; Wt 72.8 kg
[~2017-10-14 15:14] MED LIST changes: +CLOP75TA PO; +FERR325T18 PO; +FURO20TA3 PO; +HYDR-3342 PO; +METO25TA35 PO; +PRAS10TA4 PO; +VALS40TA2 PO
[2017-10-14 15:57] LABS: BASOPHILS # (AUTO) 0.02 x10^3/uL (0-0.1); BASOPHILS % (AUTO) 0 % (0-1); EOSINOPHILS % (AUTO) 0 % (1-7); LYMPHOCYTES # (AUTO) 0.59 x10^3/uL (1-3.4); LYMPHOCYTES % (AUTO) 14 % (22-44); MD NO; MEAN CORPUSCULAR HEMOGLOBIN 31.5 pg (27.0-34.8); MEAN CORPUSCULAR HGB CONC 33.6 g/dL (32.4-35.8); MEAN CORPUSCULAR VOLUME 93.7 fL (80-100); MEAN PLATELET VOLUME 8.7 fL (7.4-10.4); MONOCYTES # (AUTO) 0.22 x10^3/uL (0.2-0.8); MONOCYTES % (AUTO) 5 % (2-9); NEUTROPHILS # (AUTO) 3.39 x10^3/uL (1.8-6.8); NEUTROPHILS % (AUTO) 80 % (42-75); PLATELET COUNT 134 x10^3/uL (130-400); RED BLOOD COUNT 3.45 x10^6/uL (3.82-5.3); RED CELL DISTRIBUTION WIDTH 13.9 % (9.6-15.2)
[2017-10-14 16:06] LABS: ALBUMIN 3.3 g/dL (3.4-5.0); ANION GAP 8 mmol/L (5-15); CALCIUM 8.4 mg/dL (8.5-10.1); CHLORIDE 107 mmol/L (98-107); CREATININE 1.14 mg/dL (0.55-1.02)
[2017-10-14 16:09] LABS: TROPONIN I < 0.015 ng/mL (0.000-0.045)
[2017-10-14] MEDS: INSULIN LISPRO 100 UNITS/ML, PEN SQ-INSULIN SCH ×2 (17:30→22:42)
[2017-10-14] MEDS ORDERED: FUROSEMIDE 20 MG/2 ML IV ONE (17:30)
[2017-10-14] MEDS ORDERED: morphine SULFATE 10 MG/ML, 1ML IV PRN (17:30)
[2017-10-14] MEDS ORDERED: ZOLPIDEM 5MG TABLET PO PRN (17:30)
[2017-10-14] MEDS ORDERED: NITROGLYCERIN SINGLE TAB 0.4 MG SL PRN (17:30)
[2017-10-14] MEDS ORDERED: ONDANSETRON 2MG/ML, 2ML IVP PRN (17:30)
[2017-10-14] MEDS ORDERED: NITROGLYCERIN 0.4 MG BOTTLE (25 TABS) SL PRN (17:30)
[2017-10-14] MEDS ORDERED: NITROGLYCERIN 0.4 MG/SPRAY SL PRN (17:30)
[2017-10-14 20:30] VITALS: BP 149/81
[2017-10-14] MEDS: NYSTATIN/TRIAMCINOLONE CRM 15GM TP SCH ×2 (21:00→22:18)
[2017-10-14] MEDS: PAROXETINE HCL 25 MG PO SCH (21:00)
[2017-10-14] MEDS: METOPROLOL TARTRATE 25 MG TABLET PO SCH (21:57)
[2017-10-14] MEDS: SODIUM CHLORIDE FLUSH 10ML SYR IVF SCH (21:57)
[2017-10-14] MEDS: FERROUS SULFATE 325 MG TABLET PO SCH (21:58)
[2017-10-14] MEDS: HEPARIN 5,000 UNITS/ML, 1ML SQ SCH ×2 (21:59→22:19)
[2017-10-14 22:30] LABS: TROPONIN I 0.018 ng/mL (0.000-0.045)
[2017-10-14] MEDS: INSULIN GLARGINE 100 UNITS/ML, PEN SQ-INSULIN SCH (22:42)
[2017-10-14] MEDS ORDERED: PAROXETINE 20 MG TABLET PO SCH (23:30)
[2017-10-14] MEDS: ACETAMINOPHEN 650 MG/20.3 ML UDC PO PRN (23:52)
[2017-10-15 01:31] VITALS: BP 131/64
[2017-10-15 04:11] LABS: BASOPHILS # (AUTO) 0.02 x10^3/uL (0-0.1); BASOPHILS % (AUTO) 1 % (0-1); EOSINOPHILS % (AUTO) 0 % (1-7); LYMPHOCYTES # (AUTO) 1.15 x10^3/uL (1-3.4); LYMPHOCYTES % (AUTO) 27 % (22-44); MD NO; MEAN CORPUSCULAR HEMOGLOBIN 31.5 pg (27.0-34.8); MEAN CORPUSCULAR HGB CONC 33.9 g/dL (32.4-35.8); MEAN CORPUSCULAR VOLUME 92.7 fL (80-100); MEAN PLATELET VOLUME 8.2 fL (7.4-10.4); MONOCYTES # (AUTO) 0.29 x10^3/uL (0.2-0.8); MONOCYTES % (AUTO) 7 % (2-9); NEUTROPHILS # (AUTO) 2.76 x10^3/uL (1.8-6.8); NEUTROPHILS % (AUTO) 65 % (42-75); PLATELET COUNT 126 x10^3/uL (130-400); RED BLOOD COUNT 3.31 x10^6/uL (3.82-5.3); RED CELL DISTRIBUTION WIDTH 13.6 % (9.6-15.2)
[2017-10-15 04:15] LABS: ANION GAP 7 mmol/L (5-15); CALCIUM 8.7 mg/dL (8.5-10.1); CHLORIDE 110 mmol/L (98-107)
[2017-10-15 04:21] LABS: CHOL/HDL RATIO 2.5; CHOLESTEROL, TOTAL 149 mg/dL (140-239); CREATININE 0.99 mg/dL (0.55-1.02); HDL CHOL % 40 % (28-40); HDL CHOLESTEROL (DIRECT) 60 mg/dL (40-60); LDL CHOLESTEROL,CALCULATED 71 mg/dL (54-169); LDL/HDL RATIO 1.2 (0.5-3.0); TRIGLYCERIDES 88 mg/dL (50-200); TROPONIN I < 0.015 ng/mL (0.000-0.045); VLDL CHOLESTEROL 18 mg/dL (0-25)
[2017-10-15] MEDS: LEVOTHYROXINE 137 MCG TABLET PO SCH (05:34)
[2017-10-15] MEDS: HEPARIN 5,000 UNITS/ML, 1ML SQ SCH ×3 (05:37→21:04)
[2017-10-15] MEDS ORDERED: ASPIRIN 325 MG TABLET EC PO SCH (06:00)
[2017-10-15] MEDS: ACETAMINOPHEN 650 MG/20.3 ML UDC PO PRN ×3 (06:39→21:04)
[2017-10-15] MEDS: INSULIN LISPRO 100 UNITS/ML, PEN SQ-INSULIN SCH ×4 (07:00→21:00)
[2017-10-15 07:23] VITALS: BP 150/76
[2017-10-15] MEDS: PAROXETINE HCL 25 MG PO SCH ×2 (09:00→13:10)
[2017-10-15] MEDS: METOPROLOL TARTRATE 25 MG TABLET PO SCH ×3 (09:00→21:03)
[2017-10-15] MEDS: FERROUS SULFATE 325 MG TABLET PO SCH ×2 (09:37→21:03)
[2017-10-15] MEDS: CLOPIDOGREL 75 MG TABLET PO SCH (09:37)
[2017-10-15] MEDS: CHOLECALCIFEROL 1,000 UNIT TABLET PO SCH (09:37)
[2017-10-15] MEDS: SODIUM CHLORIDE FLUSH 10ML SYR IVF SCH ×2 (09:37→21:00)
[2017-10-15] MEDS: MULTIVITS,STRESS FORMULA 1 TABLET PO SCH (09:37)
[2017-10-15] MEDS: DAPSONE 100 MG TABLET PO SCH (09:38)
[2017-10-15] MEDS: VALSARTAN 80 MG TABLET PO SCH (09:38)
[2017-10-15] MEDS: CALCIUM/VITAMIN D3 250-125 TABLET PO SCH (09:38)
[2017-10-15] MEDS: ISOSORBIDE MONONITRATE ER 30 MG TABLET PO SCH (09:38)
[2017-10-15] MEDS: NYSTATIN/TRIAMCINOLONE CRM 15GM TP SCH ×2 (09:39→21:04)
[2017-10-15] MEDS: INSULIN GLARGINE 100 UNITS/ML, PEN SQ-INSULIN SCH ×2 (09:39→21:04)
[2017-10-15 12:43] VITALS: BP 161/70
[2017-10-15] MEDS ORDERED: LOSA100T6 PO (12:54)
[2017-10-15] MEDS ORDERED: PARO25TA12 PO (12:55)
[2017-10-15] MEDS ORDERED: PAROXETINE 20 MG TABLET PO SCH (13:00)
[2017-10-15] MEDS ORDERED: ENALAPRILAT 1.25 MG/ML, 2ML IV PRN (15:00)
[2017-10-15] MEDS: FUROSEMIDE 20 MG TABLET PO SCH (15:15)
[2017-10-15 19:36] VITALS: BP 148/75
[2017-10-16 02:49] VITALS: BP 152/73
[2017-10-16] MEDS: HEPARIN 5,000 UNITS/ML, 1ML SQ SCH ×2 (05:09→14:00)
[2017-10-16] MEDS: LEVOTHYROXINE 137 MCG TABLET PO SCH (06:54)
[2017-10-16 06:55] VITALS: BP 159/78
[2017-10-16] MEDS: MULTIVITS,STRESS FORMULA 1 TABLET PO SCH (07:57)
[2017-10-16] MEDS: CHOLECALCIFEROL 1,000 UNIT TABLET PO SCH (07:57)
[2017-10-16] MEDS: SODIUM CHLORIDE FLUSH 10ML SYR IVF SCH (07:57)
[2017-10-16] MEDS: FUROSEMIDE 20 MG TABLET PO SCH (07:57)
[2017-10-16] MEDS: ISOSORBIDE MONONITRATE ER 30 MG TABLET PO SCH (07:58)
[2017-10-16] MEDS: CLOPIDOGREL 75 MG TABLET PO SCH (07:58)
[2017-10-16] MEDS: CALCIUM/VITAMIN D3 250-125 TABLET PO SCH (07:58)
[2017-10-16] MEDS: METOPROLOL TARTRATE 25 MG TABLET PO SCH (07:58)
[2017-10-16] MEDS: FERROUS SULFATE 325 MG TABLET PO SCH (07:58)
[2017-10-16] MEDS: DAPSONE 100 MG TABLET PO SCH (07:58)
[2017-10-16] MEDS: VALSARTAN 80 MG TABLET PO SCH (07:59)
[2017-10-16] MEDS: NYSTATIN/TRIAMCINOLONE CRM 15GM TP SCH (08:20)
[2017-10-16] MEDS: INSULIN LISPRO 100 UNITS/ML, PEN SQ-INSULIN SCH ×2 (08:22→11:33)
[2017-10-16] MEDS: INSULIN GLARGINE 100 UNITS/ML, PEN SQ-INSULIN SCH (08:22)
[2017-10-16] MEDS: PAROXETINE HCL 25 MG PO SCH (08:25)
[2017-10-16] MEDS ORDERED: ASPIRIN 81 MG TABLET EC PO SCH (09:00)
[2017-10-16] MEDS: ACETAMINOPHEN 650 MG/20.3 ML UDC PO PRN (11:35)
[2017-10-16 12:50] VITALS: BP 157/73
[2017-10-16] MEDS ORDERED: INSU100I13 SQ-INSULIN (14:16)
== END 2017-10-16 16:47 | disposition home or self-care (01) ==
LOC: ED 16:54 → EDIP 16:55 → INTOOBSV 16:55 → ED 17:08 → 5SO 20:20 → DCLOUNGE 10-16 16:27
PROVIDERS: ADMIT Internal Medicine; ATTEND Internal Medicine
DX: R07.9 Chest pain, unspecified (principal); I25.10 Atherosclerotic heart disease of native coronary artery without angina pectoris; I05.0 Rheumatic mitral stenosis; D64.9 Anemia, unspecified; E03.9 Hypothyroidism, unspecified; E11.22 Type 2 diabetes mellitus with diabetic chronic kidney disease; E11.65 Type 2 diabetes mellitus with hyperglycemia; E44.1 Mild protein-calorie malnutrition; E78.5 Hyperlipidemia, unspecified; F41.9 Anxiety disorder, unspecified; I13.0 Hypertensive heart and chronic kidney disease with heart failure and stage 1 through stage 4 chronic kidney disease, or unspecified chronic kidney disease; I25.2 Old myocardial infarction; I50.9 Heart failure, unspecified; N18.3 Chronic kidney disease, stage 3 (moderate); Z95.5 Presence of coronary angioplasty implant and graft; Z79.4 Long term (current) use of insulin
CPT/HCPCS: 36415; 71045; 80048; 80061; 82040; 82962; 83036; 83880; 84145; 84443; 84484; 85025; 93005; 96372; 96374; 96375; 97163; 99285; G0378; G8978; G8979; G8980; J1644; J1815; J1940; J2405

== ENCOUNTER 2018-02-07 10:00 | Emergency (ER) | payer MEDICARE, OTHER ==
[~2018-02-07] VITALS: Ht 154.9 cm; Wt 68.3 kg
[~2018-02-07 10:00] MED LIST changes: +INSU100I13 SQ-INSULIN; +LOSA100T7 PO; +PARO25TA12 PO
[2018-02-07 10:55] LABS: BASOPHILS # (AUTO) 0.02 x10^3/uL (0-0.1); BASOPHILS % (AUTO) 0 % (0-1); EOSINOPHILS % (AUTO) 0 % (1-7); LYMPHOCYTES # (AUTO) 0.71 x10^3/uL (1-3.4); LYMPHOCYTES % (AUTO) 17 % (22-44); MD NO; MEAN CORPUSCULAR HEMOGLOBIN 30.9 pg (27.0-34.8); MEAN CORPUSCULAR HGB CONC 33.6 g/dL (32.4-35.8); MEAN PLATELET VOLUME 8.8 fL (7.4-10.4); MONOCYTES # (AUTO) 0.39 x10^3/uL (0.2-0.8); MONOCYTES % (AUTO) 9 % (2-9); NEUTROPHILS # (AUTO) 3.19 x10^3/uL (1.8-6.8); NEUTROPHILS % (AUTO) 74 % (42-75); PLATELET COUNT 129 x10^3/uL (130-400); RED BLOOD COUNT 3.85 x10^6/uL (3.82-5.3); RED CELL DISTRIBUTION WIDTH 15.2 % (9.6-15.2)
[2018-02-07 11:08] LABS: ALBUMIN 3.6 g/dL (3.4-5.0); ANION GAP 8 mmol/L (5-15); CALCIUM 8.9 mg/dL (8.5-10.1); CHLORIDE 108 mmol/L (98-107); CREATININE 1.09 mg/dL (0.55-1.02)
[2018-02-07 11:10] LABS: RAPID INFLUENZA A Negative (Negative); RAPID INFLUENZA B Negative (Negative)
[2018-02-07 11:16] LABS: ALANINE AMINOTRANSFERASE 25 U/L (12-78); ALKALINE PHOSPHATASE 78 U/L (45-117); BILIRUBIN,TOTAL 0.6 mg/dL (0.2-1.0); TOTAL PROTEIN 6.7 g/dL (6.4-8.2)
[2018-02-07] MEDS ORDERED: DOXA1TAB2 PO (12:16)
[2018-02-07 12:39] VITALS: BP 172/70
== END 2018-02-07 12:41 | disposition home or self-care (01) ==
LOC: ED 11:33
DX: R53.1 Weakness (principal); J00 Acute nasopharyngitis [common cold]; B97.89 Other viral agents as the cause of diseases classified elsewhere; I25.10 Atherosclerotic heart disease of native coronary artery without angina pectoris; I25.2 Old myocardial infarction; I50.9 Heart failure, unspecified; I10 Essential (primary) hypertension; E11.9 Type 2 diabetes mellitus without complications
CPT/HCPCS: 36415; 71045; 80053; 85025; 87400; 93005; 99284

== ENCOUNTER 2018-08-30 04:25 | Inpatient (IN) | payer MEDICARE, OTHER ==
[~2018-08-30] VITALS: Ht 154.9 cm; Wt 65.5 kg
[~2018-08-30 04:25] MED LIST changes: -ASPI-621 PO; +ASPI81TA45 PO; -CLON0.1T PO; +CLON0.1T22 PO; +DOXA1TAB2 PO; +LOSA100T14 PO; -LOSA100T7 PO
[2018-08-30] MEDS ORDERED: RANITIDINE PO (04:58)
[2018-08-30] MEDS ORDERED: SODIUM CHLORIDE FLUSH 10ML SYR IVF ONE (05:00)
[2018-08-30 05:13] LABS: BASOPHILS # (AUTO) 0.03 x10^3/uL (0-0.1); BASOPHILS % (AUTO) 1 % (0-1); EOSINOPHILS % (AUTO) 0 % (1-7); LYMPHOCYTES # (AUTO) 0.51 x10^3/uL (1-3.4); LYMPHOCYTES % (AUTO) 9 % (22-44); MD NO; MEAN CORPUSCULAR HEMOGLOBIN 27.8 pg (27.0-34.8); MEAN CORPUSCULAR HGB CONC 32.9 g/dL (32.4-35.8); MEAN CORPUSCULAR VOLUME 84.6 fL (80-100); MEAN PLATELET VOLUME 9.6 fL (7.4-10.4); MONOCYTES # (AUTO) 0.15 x10^3/uL (0.2-0.8); MONOCYTES % (AUTO) 3 % (2-9); NEUTROPHILS # (AUTO) 4.99 x10^3/uL (1.8-6.8); NEUTROPHILS % (AUTO) 88 % (42-75); PLATELET COUNT 135 x10^3/uL (130-400); RED BLOOD COUNT 4.63 x10^6/uL (3.82-5.3); RED CELL DISTRIBUTION WIDTH 14.4 % (9.6-15.2)
[2018-08-30 05:26] LABS: ANION GAP 12 mmol/L (5-15); CALCIUM 10.1 mg/dL (8.5-10.1); CHLORIDE 101 mmol/L (98-107); CREATININE 1.32 mg/dL (0.55-1.02)
[2018-08-30 05:27] LABS: PH, VENOUS 7.348 pH (7.320-7.420)
[2018-08-30 05:35] LABS: TROPONIN I 0.195 ng/mL (0.000-0.045)
--- NOTE | 2018-08-30 05:40 | NUR ---
PT WITH CRITICAL LABS. LABS REPORTED TO ERP. PT IN HOSPITAL GOWN, ON PALLET REPAIRER AND VITALS MONITORS. WILL CONTINUE TO MONITOR.
[2018-08-30] MEDS ORDERED: ONDANSETRON 2MG/ML, 2ML ONE (05:46)
[2018-08-30 05:49] LABS: D-DIMER 0.86 ug/mlFEU (0.00-0.52); INTERNATIONAL NORMALIZED RATIO 0.96 (0.93-1.1); PROTHROMBIN TIME 10.1 Seconds (9.6-11.5)
[2018-08-30] MEDS ORDERED: NITROGLYCERIN OINT 2%, 1GM TP ONE ×2 (05:56→06:00)
[2018-08-30] MEDS ORDERED: MORPHINE SULFATE 4 MG/ML, 1ML ONE (05:56)
[2018-08-30] MEDS ORDERED: ONDANSETRON 2MG/ML, 2ML IVPush ONE (06:00)
[2018-08-30] MEDS ORDERED: MORPHINE SULFATE 4 MG/ML, 1ML IVPush PRN (06:00)
[2018-08-30] MEDS ORDERED: INSULIN REGULAR 100 UNITS/ML, 3ML VIAL SQ-INSULIN SCH (06:00)
[2018-08-30 06:03] LABS: ACETONE, SERUM Moderate(40mg/dL) mg/dL (Negative)
--- NOTE | 2018-08-30 06:10 | NUR ---
PT MEDICATED FOR PAIN AND ACTIVE VOMITING PER EMAR.
--- NOTE | 2018-08-30 06:30 | NUR ---
PT WAS GIVEN WATER TO RINSE HER MOUTH, PER ERP OK. PT FOUND TO BE COUGHING AND CHOKING ON WATER.
--- NOTE | 2018-08-30 06:41 | NUR ---
REPORT TO Arina FOR ROOM 517
[2018-08-30 07:10] VITALS: BP 179/72
[2018-08-30] MEDS ORDERED: POLYETHYLENE GLYCOL 17 GM PACKET PO PRN (08:30)
[2018-08-30] MEDS ORDERED: ONDANSETRON 2MG/ML, 2ML IVPush PRN (08:30)
[2018-08-30] MEDS ORDERED: LABETALOL 5 MG/ML SYRINGE IVPush PRN (08:30)
[2018-08-30] MEDS ORDERED: DOCUSATE 100 MG CAPSULE PO PRN (08:30)
[2018-08-30] MEDS ORDERED: HEPARIN 5,000 UNITS/ML, 1ML SQ SCH (08:30)
[2018-08-30] MEDS ORDERED: FUROSEMIDE 20 MG/2 ML IV ONE (08:30)
[2018-08-30] MEDS ORDERED: NITROGLYCERIN 0.4 MG BOTTLE (25 TABS) SL PRN (08:30)
[2018-08-30] MEDS ORDERED: HYDROcodone/APAP 5/325 TABLET PO PRN (08:30)
[2018-08-30] MEDS ORDERED: BISACODYL 10 MG SUPP PR PRN (08:30)
[2018-08-30] MEDS ORDERED: ONDANSETRON ODT 4 MG PO PRN (08:30)
[2018-08-30] MEDS ORDERED: PROMETHAZINE 25 MG/ML, 1ML IM PRN (08:30)
[2018-08-30] MEDS ORDERED: morphine SULFATE 10 MG/ML, 1ML IVPush PRN (08:30)
[2018-08-30] MEDS ORDERED: FUROSEMIDE 20 MG/2 ML IV SCH (09:00)
[2018-08-30] MEDS: METOPROLOL TARTRATE 25 MG TABLET PO SCH ×4 (09:00→20:28)
[2018-08-30] MEDS: CEFTRIAXONE PMX 2GM/50ML 50 ML IV SCH (09:07)
[2018-08-30] MEDS: DOXYCYCLINE 100MG TABLET PO SCH ×2 (09:07→20:28)
[2018-08-30 09:23] LABS: FREE T4 (FREE THYROXINE) 2.34 ng/dL (0.76-1.46); THYROID STIMULATING HORMONE 0.264 mIU/L (0.358-3.740)
[2018-08-30] MEDS: INSULIN GLARGINE 100 UNITS/ML, PEN SQ-INSULIN SCH (09:46)
[2018-08-30 10:32] LABS: MICROSCOPIC NOT IND
[2018-08-30 10:35] LABS: CULTURE INDICATED? NO
[2018-08-30] MEDS ORDERED: OMNIPAQUE 350 MG/ML, 100ML BOTTLE ONE (11:06)
[2018-08-30 12:32] VITALS: BP 135/74
[2018-08-30 12:36] LABS: HEMOGLOBIN A1C 9.1 % (4.2-6.3)
[2018-08-30] MEDS: ASPIRIN 81 MG TABLET EC PO SCH (13:21)
[2018-08-30] MEDS: ACETAMINOPHEN 325 MG TABLET PO PRN ×2 (13:21→18:49)
[2018-08-30] MEDS: ISOSORBIDE MONONITRATE ER 30 MG TABLET PO SCH (13:22)
[2018-08-30] MEDS: CLOPIDOGREL 75 MG TABLET PO SCH (13:22)
[2018-08-30] MEDS: LOSARTAN 50MG TABLET PO SCH (13:22)
[2018-08-30] MEDS: INSULIN LISPRO 100 UNITS/ML, PEN SQ-INSULIN SCH ×3 (13:23→20:33)
[2018-08-30] MEDS ORDERED: FUROSEMIDE 40 MG/4 ML IV ONE (14:00)
[2018-08-30] MEDS ORDERED: HEPARIN 5,000 UNITS/ML, 1ML IV ONE (17:00)
[2018-08-30] MEDS ORDERED: HEPARIN 5,000 UNITS/ML, 1ML IV PRN (17:00)
[2018-08-30] MEDS: HEPARIN 25,000 UNITS/500ML PMX 500 ML IV PRN (18:38)
[2018-08-30 21:09] VITALS: BP 113/55
[2018-08-31 03:15] VITALS: BP 151/75
[2018-08-31] MEDS: LEVOTHYROXINE 137 MCG TABLET PO SCH (05:41)
[2018-08-31 06:15] LABS: BASOPHILS # (AUTO) 0.01 x10^3/uL (0-0.1); BASOPHILS % (AUTO) 0 % (0-1); EOSINOPHILS % (AUTO) 0 % (1-7); LYMPHOCYTES % (AUTO) 17 % (22-44); MD NO; MEAN CORPUSCULAR HEMOGLOBIN 27.3 pg (27.0-34.8); MEAN CORPUSCULAR HGB CONC 32.5 g/dL (32.4-35.8); MEAN CORPUSCULAR VOLUME 84.1 fL (80-100); MEAN PLATELET VOLUME 9.2 fL (7.4-10.4); MONOCYTES # (AUTO) 0.39 x10^3/uL (0.2-0.8); MONOCYTES % (AUTO) 6 % (2-9); NEUTROPHILS # (AUTO) 4.96 x10^3/uL (1.8-6.8); NEUTROPHILS % (AUTO) 77 % (42-75); PLATELET COUNT 132 x10^3/uL (130-400); RED BLOOD COUNT 4.33 x10^6/uL (3.82-5.3); RED CELL DISTRIBUTION WIDTH 14.8 % (9.6-15.2)
[2018-08-31 06:21] LABS: ALANINE AMINOTRANSFERASE 20 U/L (12-78); ALBUMIN 3.5 g/dL (3.4-5.0); ANION GAP 8 mmol/L (5-15); CALCIUM 9.7 mg/dL (8.5-10.1); CHLORIDE 103 mmol/L (98-107); CREATININE 1.39 mg/dL (0.55-1.02)
[2018-08-31 06:24] LABS: ALKALINE PHOSPHATASE 86 U/L (45-117); BILIRUBIN,TOTAL 0.4 mg/dL (0.2-1.0); CHOL/HDL RATIO 2.6; CHOLESTEROL, TOTAL 172 mg/dL (140-239); HDL CHOL % 38 % (28-40); HDL CHOLESTEROL (DIRECT) 66 mg/dL (40-60); LDL CHOLESTEROL,CALCULATED 85 mg/dL (54-169); LDL/HDL RATIO 1.3 (0.5-3.0); TOTAL PROTEIN 6.6 g/dL (6.4-8.2); TRIGLYCERIDES 103 mg/dL (50-200); VLDL CHOLESTEROL 21 mg/dL (0-25)
[2018-08-31 07:31] VITALS: BP 150/71
[2018-08-31] MEDS: INSULIN LISPRO 100 UNITS/ML, PEN SQ-INSULIN SCH ×4 (07:57→20:29)
[2018-08-31] MEDS: CEFTRIAXONE PMX 2GM/50ML 50 ML IV SCH (07:57)
[2018-08-31] MEDS: DOXYCYCLINE 100MG TABLET PO SCH ×2 (08:09→20:27)
[2018-08-31] MEDS: CLOPIDOGREL 75 MG TABLET PO SCH (08:09)
[2018-08-31] MEDS: METOPROLOL TARTRATE 25 MG TABLET PO SCH ×3 (08:09→20:27)
[2018-08-31] MEDS: ASPIRIN 81 MG TABLET EC PO SCH (08:09)
[2018-08-31] MEDS: ISOSORBIDE MONONITRATE ER 30 MG TABLET PO SCH (08:10)
[2018-08-31] MEDS: FUROSEMIDE 20 MG/2 ML IV SCH (08:10)
[2018-08-31] MEDS: LOSARTAN 50MG TABLET PO SCH (08:10)
[2018-08-31] MEDS: INSULIN GLARGINE 100 UNITS/ML, PEN SQ-INSULIN SCH (08:26)
[2018-08-31] MEDS: EZETIMIBE 10 MG TABLET PO SCH (08:26)
[2018-08-31] MEDS: ACETAMINOPHEN 325 MG TABLET PO PRN (10:21)
[2018-08-31 14:04] VITALS: BP 103/55
[2018-08-31 18:59] VITALS: BP 136/78
[2018-09-01 01:54] VITALS: BP 148/71
[2018-09-01] MEDS: HEPARIN 25,000 UNITS/500ML PMX 500 ML IV PRN (04:08)
[2018-09-01] MEDS: METOPROLOL SUCCINATE 100 MG TAB.ER.24H PO SCH (05:00)
[2018-09-01] MEDS: LEVOTHYROXINE 137 MCG TABLET PO SCH (05:00)
[2018-09-01 05:25] LABS: ANION GAP 4 mmol/L (5-15); CALCIUM 9.5 mg/dL (8.5-10.1); CHLORIDE 102 mmol/L (98-107)
[2018-09-01 05:27] LABS: CREATININE 1.27 mg/dL (0.55-1.02)
[2018-09-01 06:55] VITALS: BP 163/79
[2018-09-01] MEDS: INSULIN LISPRO 100 UNITS/ML, PEN SQ-INSULIN SCH ×4 (07:00→20:47)
[2018-09-01] MEDS: INSULIN GLARGINE 100 UNITS/ML, PEN SQ-INSULIN SCH (07:21)
[2018-09-01] MEDS: CEFTRIAXONE PMX 2GM/50ML 50 ML IV SCH (07:38)
[2018-09-01] MEDS: FUROSEMIDE 20 MG/2 ML IV SCH (07:50)
[2018-09-01] MEDS ORDERED: SODIUM CHLORIDE 0.9% 1,000 ML IV SCH (11:00)
[2018-09-01 12:23] VITALS: BP 149/73
[2018-09-01] MEDS ORDERED: VERAPAMIL 2.5 MG/ML, 2ML ONE (14:07)
[2018-09-01] MEDS ORDERED: LIDOCAINE 2%, 20ML ONE (14:07)
[2018-09-01] MEDS ORDERED: FENTANYL PF 100 MCG/2ML ONE (14:07)
[2018-09-01] MEDS ORDERED: CLOPIDOGREL 300 MG TABLET ONE (14:08)
[2018-09-01] MEDS ORDERED: MIDAZOLAM 1 MG/ML, 2ML ONE (14:08)
[2018-09-01] MEDS ORDERED: BIVALIRUDIN 250 MG ONE (14:38)
[2018-09-01] MEDS: SODIUM CHLORIDE 0.9% 1,000 ML IV SCH ×2 (15:08→23:30)
[2018-09-01] MEDS ORDERED: BIVALIRUDIN 250 MG in SODIUM CHLORIDE 0.9% 50 ML IV SCH (15:08)
[2018-09-01] MEDS ORDERED: ONDANSETRON 2MG/ML, 2ML IVPush PRN (15:30)
[2018-09-01] MEDS: LOSARTAN 50MG TABLET PO SCH (15:43)
[2018-09-01] MEDS: DOXYCYCLINE 100MG TABLET PO SCH ×2 (15:44→20:36)
[2018-09-01] MEDS: ASPIRIN 81 MG TABLET EC PO SCH (15:44)
[2018-09-01] MEDS ORDERED: hydrALAzine 20 MG/ML, 1ML ONE (15:54)
[2018-09-01] MEDS ORDERED: hydrALAzine 20 MG/ML, 1ML IV PRN (16:00)
[2018-09-01] MEDS ORDERED: morphine SULFATE 10 MG/ML, 1ML IVPush PRN (16:00)
[2018-09-01] MEDS: EZETIMIBE 10 MG TABLET PO SCH (16:13)
[2018-09-01 19:55] VITALS: BP 137/66
[2018-09-01] MEDS: ACETAMINOPHEN 325 MG TABLET PO PRN (20:47)
[2018-09-01] MEDS ORDERED: ZOLPIDEM 5MG TABLET PO PRN (21:00)
[2018-09-01 23:41] VITALS: BP 131/56
[2018-09-02 03:41] VITALS: BP 135/73
[2018-09-02 04:28] VITALS: BP 125/79
[2018-09-02 04:46] LABS: ANION GAP 10 mmol/L (5-15); CALCIUM 9.5 mg/dL (8.5-10.1); CHLORIDE 103 mmol/L (98-107)
[2018-09-02 06:07] VITALS: BP 158/74
[2018-09-02] MEDS: LEVOTHYROXINE 137 MCG TABLET PO SCH (06:08)
[2018-09-02] MEDS: METOPROLOL SUCCINATE 100 MG TAB.ER.24H PO SCH (06:08)
[2018-09-02] MEDS: SODIUM CHLORIDE 0.9% 1,000 ML IV SCH ×2 (07:08→15:08)
[2018-09-02] MEDS: CEFTRIAXONE PMX 2GM/50ML 50 ML IV SCH (08:37)
[2018-09-02] MEDS: LOSARTAN 50MG TABLET PO SCH (08:38)
[2018-09-02] MEDS: ASPIRIN 81 MG TABLET EC PO SCH (08:38)
[2018-09-02] MEDS: FUROSEMIDE 20 MG/2 ML IV SCH (08:38)
[2018-09-02] MEDS: EZETIMIBE 10 MG TABLET PO SCH (08:38)
[2018-09-02] MEDS: DOXYCYCLINE 100MG TABLET PO SCH (08:38)
[2018-09-02] MEDS: INSULIN GLARGINE 100 UNITS/ML, PEN SQ-INSULIN SCH (08:39)
[2018-09-02] MEDS: INSULIN LISPRO 100 UNITS/ML, PEN SQ-INSULIN SCH ×2 (08:39→11:33)
[2018-09-02] MEDS ORDERED: CLOPIDOGREL 75 MG TABLET PO SCH (09:00)
[2018-09-02] MEDS ORDERED: ISOSORBIDE MONONITRATE ER 60 MG TABLET PO SCH (09:00)
[2018-09-02] MEDS ORDERED: EZET10TA48 PO (12:37)
[2018-09-02] MEDS ORDERED: METO-95 PO (12:37)
[2018-09-02] MEDS ORDERED: DOXY100T10 PO (12:37)
[2018-09-02] MEDS ORDERED: CEFD300C37 PO (12:37)
[2018-09-02] MEDS ORDERED: FURO-93 PO (12:44)
[2018-09-02] MEDS ORDERED: LEVO50TA PO (12:50)
[2018-09-02 13:28] VITALS: BP 114/69
[2018-09-02] MEDS ORDERED: LOSA100T14 PO (14:26)
[2018-09-02] MEDS: ACETAMINOPHEN 325 MG TABLET PO PRN (15:21)
== END 2018-09-02 17:05 | disposition home health service (06) | DRG 246 ==
LOC: ED 06:11 → EDIP 07:04 → 5SO 07:07 → DCLOUNGE 09-02 16:50
PROVIDERS: ADMIT Internal Medicine; ATTEND Internal Medicine
PROC: 027136Z Dilation of Coronary Artery, Two Arteries with Three Drug-eluting Intraluminal Devices, Percutaneous Approach (ICD-10-PCS; principal; 2018-09-01)
PROC: 4A023N7 Measurement of Cardiac Sampling and Pressure, Left Heart, Percutaneous Approach (ICD-10-PCS; 2018-09-01)
PROC: B2111ZZ Fluoroscopy of Multiple Coronary Arteries using Low Osmolar Contrast (ICD-10-PCS; 2018-09-01)
DX: I21.4 Non-ST elevation (NSTEMI) myocardial infarction (principal); J15.6 Pneumonia due to other Gram-negative bacteria; I50.33 Acute on chronic diastolic (congestive) heart failure; N17.0 Acute kidney failure with tubular necrosis; I13.0 Hypertensive heart and chronic kidney disease with heart failure and stage 1 through stage 4 chronic kidney disease, or unspecified chronic kidney disease; I25.110 Atherosclerotic heart disease of native coronary artery with unstable angina pectoris; D64.9 Anemia, unspecified; E03.9 Hypothyroidism, unspecified; E11.22 Type 2 diabetes mellitus with diabetic chronic kidney disease; E11.65 Type 2 diabetes mellitus with hyperglycemia; E78.5 Hyperlipidemia, unspecified; I05.2 Rheumatic mitral stenosis with insufficiency; I27.20 Pulmonary hypertension, unspecified; Z96.641 Presence of right artificial hip joint; N18.3 Chronic kidney disease, stage 3 (moderate); Z79.4 Long term (current) use of insulin; Z82.49 Family history of ischemic heart disease and other diseases of the circulatory system; Z83.3 Family history of diabetes mellitus; Z87.891 Personal history of nicotine dependence; Z88.8 Allergy status to other drugs, medicaments and biological substances; Z90.710 Acquired absence of both cervix and uterus; Z90.49 Acquired absence of other specified parts of digestive tract; I25.2 Old myocardial infarction; Z95.5 Presence of coronary angioplasty implant and graft
CPT/HCPCS: 36415; 71045; 71275; 80048; 80053; 80061; 81003; 82010; 82040; 82803; 82947; 82962; 83036; 83735; 83880; 84132; 84439; 84443; 84484; 85018; 85025; 85379; 85520; 85610; 93005; 93306; 93454; 96372; 96374; 99156; 99157; C1769; C1894; C9600; G0378; J0583; J0696; J1644; J1940; J2250; J2405; J3010; Q0162; Q9967; C1874; C1887; J0360; J1815; J2270; J7030

== ENCOUNTER 2018-10-07 14:28 | Observation (INO) | payer MEDICARE, OTHER ==
[~2018-10-07] VITALS: Ht 154.9 cm; Wt 65.0 kg
[2018-10-08 12:47] VITALS: BP 178/84
== END 2018-10-08 16:20 | disposition home or self-care (01) ==
LOC: ED 15:46 → EDIP 17:10 → 3NE 19:08 → DCLOUNGE 10-08 16:07
PROVIDERS: ADMIT Family Medicine; ATTEND Family Medicine
DX: I13.0 Hypertensive heart and chronic kidney disease with heart failure and stage 1 through stage 4 chronic kidney disease, or unspecified chronic kidney disease (principal); E11.22 Type 2 diabetes mellitus with diabetic chronic kidney disease; N18.9 Chronic kidney disease, unspecified; E87.1 Hypo-osmolality and hyponatremia; E46 Unspecified protein-calorie malnutrition; E03.9 Hypothyroidism, unspecified; F32.9 Major depressive disorder, single episode, unspecified; E86.0 Dehydration; E11.65 Type 2 diabetes mellitus with hyperglycemia; I25.10 Atherosclerotic heart disease of native coronary artery without angina pectoris; I25.2 Old myocardial infarction; N17.9 Acute kidney failure, unspecified; Z95.5 Presence of coronary angioplasty implant and graft; Z79.02 Long term (current) use of antithrombotics/antiplatelets; Z79.4 Long term (current) use of insulin; Z79.899 Other long term (current) drug therapy; Z88.2 Allergy status to sulfonamides; Z88.1 Allergy status to other antibiotic agents; Z88.8 Allergy status to other drugs, medicaments and biological substances; Z68.27 Body mass index [BMI] 27.0-27.9, adult
CPT/HCPCS: 36415; 71045; 80048; 80053; 82010; 82803; 82947; 82962; 83690; 83735; 84439; 84443; 85025; 93005; 96372; 97161; 97166; 99284; G0378; J1815; J7120

== ENCOUNTER 2018-11-15 16:49 | Inpatient (IN) | payer MEDICARE, OTHER ==
[~2018-11-15] VITALS: Ht 154.9 cm; Wt 64.3 kg
[~2018-11-15 16:49] MED LIST changes: +AMOX1TAB12 PO; +CEFD300C37 PO; +DOXY100T10 PO; +EZET10TA48 PO; +FURO-93 PO; +LEVO50TA PO; +METO-95 PO; +RANITIDINE PO
--- NOTE | 2018-11-15 17:01 | NUR ---
jessica. report received from ems. pt c/o cough x 1 week. pt went to urgent care today and told her to come here because she might have pna. pt c/o cp only when she coughs. pt's aox4. resps even and unlabored. pt refused iv correctional captain. all monitors in place. call light within reach.
[2018-11-15] MEDS ORDERED: ALBUTEROL SULFATE 2.5 MG/3 ML ONE (17:46)
[2018-11-15] MEDS ORDERED: ALBUTEROL SULFATE 2.5 MG/3 ML NPPB ONE (18:00)
--- NOTE | 2018-11-15 18:12 | NUR ---
PT RESTING IN [facility]. RESPS EVEN AND UNLABORED. PT'S AOX4. ALL MONITORS IN PLACE. CALL LIGHT WITHIN REACH.
[2018-11-15 18:23] LABS: BASOPHILS # (AUTO) 0.04 x10^3/uL (0-0.1); BASOPHILS % (AUTO) 1 % (0-1); EOSINOPHILS # (AUTO) 0.05 x10^3/uL (0-0.4); EOSINOPHILS % (AUTO) 1 % (1-7); LYMPHOCYTES # (AUTO) 0.85 x10^3/uL (1-3.4); LYMPHOCYTES % (AUTO) 12 % (22-44); MD NO; MEAN CORPUSCULAR HEMOGLOBIN 27.1 pg (27.0-34.8); MEAN CORPUSCULAR HGB CONC 32.7 g/dL (32.4-35.8); MEAN CORPUSCULAR VOLUME 82.7 fL (80-100); MEAN PLATELET VOLUME 7.8 fL (7.4-10.4); MONOCYTES # (AUTO) 0.63 x10^3/uL (0.2-0.8); MONOCYTES % (AUTO) 9 % (2-9); NEUTROPHILS # (AUTO) 5.51 x10^3/uL (1.8-6.8); NEUTROPHILS % (AUTO) 78 % (42-75); PLATELET COUNT 382 x10^3/uL (130-400); RED BLOOD COUNT 3.69 x10^6/uL (3.82-5.3); RED CELL DISTRIBUTION WIDTH 17.8 % (9.6-15.2)
[2018-11-15 18:26] LABS: ANION GAP 9 mmol/L (5-15); CALCIUM 9.2 mg/dL (8.5-10.1); CHLORIDE 98 mmol/L (98-107); CREATININE 1.27 mg/dL (0.55-1.02)
[2018-11-15 18:27] LABS: ALBUMIN 2.7 g/dL (3.4-5.0)
--- NOTE | 2018-11-15 18:50 | NUR ---
REPORT GIVEN TO URSULA BRIAN.
--- NOTE | 2018-11-15 18:55 | NUR ---
report from SNEHAL Parr. pt resting in room. vss. no needs expressed.
[2018-11-15 19:18] LABS: TROPONIN I < 0.015 ng/mL (0.000-0.045)
--- NOTE | 2018-11-15 19:44 | NUR ---
PT RESTING IN ROOM. VSS. NO NEEDS EXPRESSED. ALL RESULTS BACK AT THIS TIME. CHART UP FOR RECHECK.
[2018-11-15] MEDS ORDERED: FUROSEMIDE 40 MG/4 ML IVPush ONE (20:30)
--- NOTE | 2018-11-15 20:40 | NUR ---
pt resting in room. vss on 2lnc. iv established. pt declining lasix at this time because she doesn't want to use the rr all night. Dr. Alatorre aware. admit orders received. awaiting room assignment.
[2018-11-15 21:00] LABS: HEMOGLOBIN A1C 9.9 % (4.2-6.3)
[2018-11-15] MEDS ORDERED: BISACODYL 10 MG SUPP PR PRN (21:00)
[2018-11-15] MEDS ORDERED: TEMPLATE NON-FORMULARY MED. (Insulin Aspart** (Novolog**) 0 UNITS) MC SCH (21:00)
[2018-11-15] MEDS ORDERED: POLYETHYLENE GLYCOL 17 GM PACKET PO PRN (21:00)
--- NOTE | 2018-11-15 21:31 | NUR ---
report to leanne urbina. pt ready for transport.
[2018-11-15] MEDS: SODIUM CHLORIDE FLUSH 10ML SYR IVF SCH (22:00)
[2018-11-15 23:00] VITALS: BP 157/70
[2018-11-16] MEDS: DOXAZOSIN 1MG TABLET PO SCH ×3 (00:05→21:14)
[2018-11-16] MEDS: INSULIN LISPRO 100 UNITS/ML, PEN SQ-INSULIN SCH ×5 (00:05→21:19)
[2018-11-16] MEDS: INSULIN GLARGINE 100 UNITS/ML, PEN SQ-INSULIN SCH ×3 (00:06→21:20)
[2018-11-16] MEDS: ACETAMINOPHEN 325 MG TABLET PO PRN ×4 (00:07→23:52)
[2018-11-16 01:29] VITALS: BP 132/68
[2018-11-16 05:13] LABS: BASOPHILS # (AUTO) 0.03 x10^3/uL (0-0.1); BASOPHILS % (AUTO) 1 % (0-1); EOSINOPHILS # (AUTO) 0.06 x10^3/uL (0-0.4); EOSINOPHILS % (AUTO) 1 % (1-7); LYMPHOCYTES # (AUTO) 0.88 x10^3/uL (1-3.4); LYMPHOCYTES % (AUTO) 16 % (22-44); MD NO; MEAN CORPUSCULAR HEMOGLOBIN 26.8 pg (27.0-34.8); MEAN CORPUSCULAR HGB CONC 32.5 g/dL (32.4-35.8); MEAN CORPUSCULAR VOLUME 82.6 fL (80-100); MEAN PLATELET VOLUME 7.7 fL (7.4-10.4); MONOCYTES # (AUTO) 0.68 x10^3/uL (0.2-0.8); MONOCYTES % (AUTO) 12 % (2-9); NEUTROPHILS # (AUTO) 3.95 x10^3/uL (1.8-6.8); NEUTROPHILS % (AUTO) 71 % (42-75); PLATELET COUNT 333 x10^3/uL (130-400); RED BLOOD COUNT 3.56 x10^6/uL (3.82-5.3); RED CELL DISTRIBUTION WIDTH 18.4 % (9.6-15.2)
[2018-11-16 05:19] LABS: ALBUMIN 2.6 g/dL (3.4-5.0); ANION GAP 6 mmol/L (5-15); CALCIUM 9.1 mg/dL (8.5-10.1); CHLORIDE 97 mmol/L (98-107)
[2018-11-16 05:26] LABS: ALANINE AMINOTRANSFERASE 11 U/L (12-78); ALKALINE PHOSPHATASE 110 U/L (45-117); BILIRUBIN,TOTAL 0.5 mg/dL (0.2-1.0); CREATININE 1.24 mg/dL (0.55-1.02); TOTAL PROTEIN 6.3 g/dL (6.4-8.2); TROPONIN I < 0.015 ng/mL (0.000-0.045)
[2018-11-16] MEDS: LEVOTHYROXINE 100 MCG TABLET PO SCH (06:12)
[2018-11-16] MEDS: METOPROLOL SUCCINATE 100 MG TAB.ER.24H PO SCH (06:13)
[2018-11-16 07:20] VITALS: BP 114/71
[2018-11-16] MEDS: MULTIVITS,STRESS FORMULA 1 TABLET PO SCH (09:13)
[2018-11-16] MEDS: FUROSEMIDE 20 MG/2 ML IV SCH ×2 (09:13→17:25)
[2018-11-16] MEDS: CHOLECALCIFEROL 1,000 UNIT TABLET PO SCH (09:13)
[2018-11-16] MEDS: ISOSORBIDE MONONITRATE ER 30 MG TABLET PO SCH (09:13)
[2018-11-16] MEDS: CALCIUM/VITAMIN D3 250-125 TABLET PO SCH (09:14)
[2018-11-16] MEDS: ASPIRIN 81 MG TABLET EC PO SCH (09:14)
[2018-11-16] MEDS: SENNA/DOCUSATE TABLET PO SCH (09:17)
[2018-11-16] MEDS: PAROXETINE HCL 25 MG HOMEMEDPO SCH (09:17)
[2018-11-16] MEDS: CLOPIDOGREL 75 MG TABLET PO SCH (09:17)
[2018-11-16] MEDS: LOSARTAN 50MG TABLET PO SCH (09:17)
[2018-11-16] MEDS: FAMOTIDINE 20 MG TABLET PO SCH (09:17)
[2018-11-16] MEDS: EZETIMIBE 10 MG TABLET PO SCH (09:18)
[2018-11-16] MEDS: HEPARIN 5,000 UNITS/ML, 1ML SQ SCH ×2 (09:26→17:25)
[2018-11-16] MEDS: SODIUM CHLORIDE FLUSH 10ML SYR IVF SCH ×2 (09:30→21:14)
[2018-11-16] MEDS: ONDANSETRON ODT 4 MG PO PRN (11:44)
[2018-11-16 13:00] VITALS: BP 133/72
[2018-11-16 18:51] VITALS: BP 110/64
[2018-11-17] MEDS: HEPARIN 5,000 UNITS/ML, 1ML SQ SCH ×3 (02:18→17:00)
[2018-11-17 02:27] VITALS: BP 123/68
[2018-11-17] MEDS: LEVOTHYROXINE 100 MCG TABLET PO SCH (05:09)
[2018-11-17] MEDS: METOPROLOL SUCCINATE 100 MG TAB.ER.24H PO SCH (05:10)
[2018-11-17 07:25] VITALS: BP 130/59
[2018-11-17] MEDS: INSULIN LISPRO 100 UNITS/ML, PEN SQ-INSULIN SCH ×4 (08:02→21:39)
[2018-11-17 08:31] LABS: ALBUMIN 2.6 g/dL (3.4-5.0); ANION GAP 7 mmol/L (5-15); CALCIUM 9.6 mg/dL (8.5-10.1); CHLORIDE 101 mmol/L (98-107)
[2018-11-17 08:35] LABS: ALANINE AMINOTRANSFERASE 11 U/L (12-78); ALKALINE PHOSPHATASE 118 U/L (45-117); BILIRUBIN,TOTAL 0.5 mg/dL (0.2-1.0); CREATININE 1.04 mg/dL (0.55-1.02); TOTAL PROTEIN 6.7 g/dL (6.4-8.2)
[2018-11-17] MEDS: FUROSEMIDE 20 MG/2 ML IV SCH ×2 (09:26→17:00)
[2018-11-17] MEDS: SODIUM CHLORIDE FLUSH 10ML SYR IVF SCH ×2 (09:26→21:40)
[2018-11-17] MEDS: DOXAZOSIN 1MG TABLET PO SCH ×2 (09:27→21:38)
[2018-11-17] MEDS: ISOSORBIDE MONONITRATE ER 30 MG TABLET PO SCH (09:27)
[2018-11-17] MEDS: EZETIMIBE 10 MG TABLET PO SCH (09:27)
[2018-11-17] MEDS: LOSARTAN 50MG TABLET PO SCH (09:27)
[2018-11-17] MEDS: CHOLECALCIFEROL 1,000 UNIT TABLET PO SCH (09:28)
[2018-11-17] MEDS: CALCIUM/VITAMIN D3 250-125 TABLET PO SCH (09:28)
[2018-11-17] MEDS: FAMOTIDINE 20 MG TABLET PO SCH (09:28)
[2018-11-17] MEDS: SENNA/DOCUSATE TABLET PO SCH (09:28)
[2018-11-17] MEDS: CLOPIDOGREL 75 MG TABLET PO SCH (09:28)
[2018-11-17] MEDS: ASPIRIN 81 MG TABLET EC PO SCH (09:28)
[2018-11-17] MEDS: MULTIVITS,STRESS FORMULA 1 TABLET PO SCH (09:28)
[2018-11-17] MEDS: PAROXETINE HCL 25 MG HOMEMEDPO SCH (09:29)
[2018-11-17] MEDS: INSULIN GLARGINE 100 UNITS/ML, PEN SQ-INSULIN SCH ×2 (09:29→21:39)
[2018-11-17 10:12] LABS: MICROSCOPIC AUTO
[2018-11-17 10:22] LABS: CULTURE INDICATED? YES
[2018-11-17 13:04] VITALS: BP 105/63
[2018-11-17] MEDS: ACETAMINOPHEN 325 MG TABLET PO PRN (17:00)
[2018-11-17 19:07] VITALS: BP 109/62
[2018-11-17 21:25] VITALS: BP 115/66
[2018-11-18] VITALS (7 sets, daily range): BP systolic 112–148; BP diastolic 61–76
[2018-11-18] MEDS: HEPARIN 5,000 UNITS/ML, 1ML SQ SCH ×3 (01:11→17:14)
[2018-11-18] MEDS: ACETAMINOPHEN 325 MG TABLET PO PRN ×2 (01:15→21:42)
[2018-11-18] MEDS: LEVOTHYROXINE 100 MCG TABLET PO SCH (06:20)
[2018-11-18] MEDS: METOPROLOL SUCCINATE 100 MG TAB.ER.24H PO SCH (06:21)
[2018-11-18] MEDS: FUROSEMIDE 20 MG/2 ML IV SCH ×2 (06:21→17:08)
[2018-11-18] MEDS: PAROXETINE HCL 25 MG HOMEMEDPO SCH (08:45)
[2018-11-18] MEDS: INSULIN LISPRO 100 UNITS/ML, PEN SQ-INSULIN SCH ×4 (08:45→21:58)
[2018-11-18] MEDS: INSULIN GLARGINE 100 UNITS/ML, PEN SQ-INSULIN SCH ×2 (08:45→21:59)
[2018-11-18] MEDS: ASPIRIN 81 MG TABLET EC PO SCH (08:46)
[2018-11-18] MEDS: SODIUM CHLORIDE FLUSH 10ML SYR IVF SCH ×2 (08:46→21:42)
[2018-11-18] MEDS: MULTIVITS,STRESS FORMULA 1 TABLET PO SCH (08:46)
[2018-11-18] MEDS: EZETIMIBE 10 MG TABLET PO SCH (08:46)
[2018-11-18] MEDS: SENNA/DOCUSATE TABLET PO SCH (08:47)
[2018-11-18] MEDS: LOSARTAN 50MG TABLET PO SCH (08:48)
[2018-11-18] MEDS: DOXAZOSIN 1MG TABLET PO SCH ×2 (08:49→21:42)
[2018-11-18] MEDS: FAMOTIDINE 20 MG TABLET PO SCH (08:49)
[2018-11-18] MEDS: CHOLECALCIFEROL 1,000 UNIT TABLET PO SCH (08:49)
[2018-11-18] MEDS: CLOPIDOGREL 75 MG TABLET PO SCH (08:50)
[2018-11-18] MEDS: CALCIUM/VITAMIN D3 250-125 TABLET PO SCH (08:50)
[2018-11-18] MEDS: ISOSORBIDE MONONITRATE ER 30 MG TABLET PO SCH (08:51)
[2018-11-19 00:57] VITALS: BP 146/68
[2018-11-19] MEDS: HEPARIN 5,000 UNITS/ML, 1ML SQ SCH ×3 (01:00→17:05)
[2018-11-19 05:18] LABS: ANION GAP 6 mmol/L (5-15); BASOPHILS # (AUTO) 0.03 x10^3/uL (0-0.1); BASOPHILS % (AUTO) 1 % (0-1); CALCIUM 9.5 mg/dL (8.5-10.1); CHLORIDE 99 mmol/L (98-107); CREATININE 1.23 mg/dL (0.55-1.02); EOSINOPHILS # (AUTO) 0.06 x10^3/uL (0-0.4); EOSINOPHILS % (AUTO) 1 % (1-7); LYMPHOCYTES # (AUTO) 1.07 x10^3/uL (1-3.4); LYMPHOCYTES % (AUTO) 18 % (22-44); MD NO; MEAN CORPUSCULAR HEMOGLOBIN 26.7 pg (27.0-34.8); MEAN CORPUSCULAR HGB CONC 32.4 g/dL (32.4-35.8); MEAN CORPUSCULAR VOLUME 82.4 fL (80-100); MEAN PLATELET VOLUME 8.1 fL (7.4-10.4); MONOCYTES # (AUTO) 0.74 x10^3/uL (0.2-0.8); MONOCYTES % (AUTO) 13 % (2-9); NEUTROPHILS # (AUTO) 3.94 x10^3/uL (1.8-6.8); NEUTROPHILS % (AUTO) 68 % (42-75); PLATELET COUNT 293 x10^3/uL (130-400); RED BLOOD COUNT 3.58 x10^6/uL (3.82-5.3)
[2018-11-19] MEDS ORDERED: LEVOTHYROXINE 112 MCG TABLET PO SCH (06:00)
[2018-11-19] MEDS: INSULIN LISPRO 100 UNITS/ML, PEN SQ-INSULIN SCH ×4 (07:00→21:39)
[2018-11-19 07:14] VITALS: BP 157/72
[2018-11-19] MEDS: SODIUM CHLORIDE FLUSH 10ML SYR IVF SCH ×2 (08:38→21:00)
[2018-11-19] MEDS: FUROSEMIDE 20 MG/2 ML IV SCH ×2 (08:38→17:05)
[2018-11-19] MEDS: PAROXETINE HCL 25 MG HOMEMEDPO SCH (08:38)
[2018-11-19] MEDS: DOXAZOSIN 1MG TABLET PO SCH ×2 (08:40→21:38)
[2018-11-19] MEDS: LOSARTAN 50MG TABLET PO SCH (08:41)
[2018-11-19] MEDS: EZETIMIBE 10 MG TABLET PO SCH (08:41)
[2018-11-19] MEDS: CLOPIDOGREL 75 MG TABLET PO SCH (08:42)
[2018-11-19] MEDS: MULTIVITS,STRESS FORMULA 1 TABLET PO SCH (08:42)
[2018-11-19] MEDS: SENNA/DOCUSATE TABLET PO SCH (08:43)
[2018-11-19] MEDS: FAMOTIDINE 20 MG TABLET PO SCH (08:43)
[2018-11-19] MEDS: CALCIUM/VITAMIN D3 250-125 TABLET PO SCH (08:44)
[2018-11-19] MEDS: METOPROLOL SUCCINATE 100 MG TAB.ER.24H PO SCH (08:44)
[2018-11-19] MEDS: CHOLECALCIFEROL 1,000 UNIT TABLET PO SCH (08:45)
[2018-11-19] MEDS: ASPIRIN 81 MG TABLET EC PO SCH (08:45)
[2018-11-19] MEDS: ISOSORBIDE MONONITRATE ER 30 MG TABLET PO SCH (08:45)
[2018-11-19] MEDS: INSULIN GLARGINE 100 UNITS/ML, PEN SQ-INSULIN SCH ×2 (08:46→21:39)
[2018-11-19] MEDS: ONDANSETRON ODT 4 MG PO PRN (10:16)
[2018-11-19 13:49] VITALS: BP 110/58
[2018-11-19 19:47] VITALS: BP 113/60
[2018-11-19] MEDS: ACETAMINOPHEN 325 MG TABLET PO PRN (21:38)
[2018-11-20] MEDS ORDERED: DIPHENHYDRAMINE 25 MG CAPSULE PO ONE
[2018-11-20 01:16] VITALS: BP 137/62
[2018-11-20] MEDS: HEPARIN 5,000 UNITS/ML, 1ML SQ SCH ×3 (03:15→17:00)
[2018-11-20 05:29] LABS: BASOPHILS # (AUTO) 0.04 x10^3/uL (0-0.1); BASOPHILS % (AUTO) 1 % (0-1); EOSINOPHILS # (AUTO) 0.04 x10^3/uL (0-0.4); EOSINOPHILS % (AUTO) 1 % (1-7); LYMPHOCYTES # (AUTO) 0.83 x10^3/uL (1-3.4); LYMPHOCYTES % (AUTO) 20 % (22-44); MD NO; MEAN CORPUSCULAR HEMOGLOBIN 26.7 pg (27.0-34.8); MEAN CORPUSCULAR HGB CONC 32.3 g/dL (32.4-35.8); MEAN CORPUSCULAR VOLUME 82.7 fL (80-100); MEAN PLATELET VOLUME 7.8 fL (7.4-10.4); MONOCYTES # (AUTO) 0.44 x10^3/uL (0.2-0.8); MONOCYTES % (AUTO) 11 % (2-9); NEUTROPHILS # (AUTO) 2.84 x10^3/uL (1.8-6.8); NEUTROPHILS % (AUTO) 68 % (42-75); PLATELET COUNT 305 x10^3/uL (130-400); RED BLOOD COUNT 3.74 x10^6/uL (3.82-5.3); RED CELL DISTRIBUTION WIDTH 17.6 % (9.6-15.2)
[2018-11-20 05:33] LABS: ALBUMIN 2.7 g/dL (3.4-5.0); ANION GAP 8 mmol/L (5-15); CALCIUM 9.7 mg/dL (8.5-10.1); CHLORIDE 99 mmol/L (98-107); CREATININE 1.17 mg/dL (0.55-1.02)
[2018-11-20] MEDS: LEVOTHYROXINE 150 MCG TABLET PO SCH (06:46)
[2018-11-20] MEDS: METOPROLOL SUCCINATE 100 MG TAB.ER.24H PO SCH (06:46)
[2018-11-20 07:01] VITALS: BP 134/66
[2018-11-20] MEDS: ACETAMINOPHEN 325 MG TABLET PO PRN ×3 (07:16→21:32)
[2018-11-20] MEDS: PAROXETINE HCL 25 MG HOMEMEDPO SCH (09:00)
[2018-11-20] MEDS: INSULIN LISPRO 100 UNITS/ML, PEN SQ-INSULIN SCH ×4 (09:15→21:36)
[2018-11-20] MEDS: INSULIN GLARGINE 100 UNITS/ML, PEN SQ-INSULIN SCH ×2 (09:16→21:35)
[2018-11-20] MEDS: LOSARTAN 50MG TABLET PO SCH (09:17)
[2018-11-20] MEDS: CALCIUM/VITAMIN D3 250-125 TABLET PO SCH (09:18)
[2018-11-20] MEDS: ASPIRIN 81 MG TABLET EC PO SCH (09:18)
[2018-11-20] MEDS: CHOLECALCIFEROL 1,000 UNIT TABLET PO SCH (09:18)
[2018-11-20] MEDS: ISOSORBIDE MONONITRATE ER 30 MG TABLET PO SCH (09:19)
[2018-11-20] MEDS: CLOPIDOGREL 75 MG TABLET PO SCH (09:19)
[2018-11-20] MEDS: MULTIVITS,STRESS FORMULA 1 TABLET PO SCH (09:19)
[2018-11-20] MEDS: SENNA/DOCUSATE TABLET PO SCH (09:19)
[2018-11-20] MEDS: DOXAZOSIN 1MG TABLET PO SCH ×2 (09:20→21:32)
[2018-11-20] MEDS: EZETIMIBE 10 MG TABLET PO SCH (09:20)
[2018-11-20] MEDS: FAMOTIDINE 20 MG TABLET PO SCH (09:20)
[2018-11-20] MEDS: SODIUM CHLORIDE FLUSH 10ML SYR IVF SCH ×2 (09:21→21:31)
[2018-11-20] MEDS: FUROSEMIDE 40 MG/4 ML IV SCH ×3 (09:22→21:31)
[2018-11-20 12:33] VITALS: BP 120/51
[2018-11-20 19:23] VITALS: BP 129/55
[2018-11-21] VITALS: BP 159/68
[2018-11-21] MEDS: HEPARIN 5,000 UNITS/ML, 1ML SQ SCH ×3 (02:45→20:24)
[2018-11-21 04:59] LABS: BASOPHILS # (AUTO) 0.01 x10^3/uL (0-0.1); BASOPHILS % (AUTO) 0 % (0-1); EOSINOPHILS # (AUTO) 0.04 x10^3/uL (0-0.4); EOSINOPHILS % (AUTO) 1 % (1-7); LYMPHOCYTES # (AUTO) 1.14 x10^3/uL (1-3.4); LYMPHOCYTES % (AUTO) 19 % (22-44); MD NO; MEAN CORPUSCULAR HEMOGLOBIN 26.9 pg (27.0-34.8); MEAN CORPUSCULAR HGB CONC 32.8 g/dL (32.4-35.8); MEAN CORPUSCULAR VOLUME 82.1 fL (80-100); MEAN PLATELET VOLUME 8.2 fL (7.4-10.4); MONOCYTES # (AUTO) 0.71 x10^3/uL (0.2-0.8); MONOCYTES % (AUTO) 12 % (2-9); NEUTROPHILS # (AUTO) 4.14 x10^3/uL (1.8-6.8); NEUTROPHILS % (AUTO) 69 % (42-75); PLATELET COUNT 287 x10^3/uL (130-400); RED BLOOD COUNT 3.75 x10^6/uL (3.82-5.3)
[2018-11-21 05:06] LABS: ALBUMIN 2.8 g/dL (3.4-5.0); ANION GAP 7 mmol/L (5-15); CALCIUM 10.1 mg/dL (8.5-10.1); CHLORIDE 98 mmol/L (98-107)
[2018-11-21 05:13] LABS: CREATININE 1.26 mg/dL (0.55-1.02)
[2018-11-21] MEDS: LEVOTHYROXINE 150 MCG TABLET PO SCH (06:46)
[2018-11-21] MEDS: METOPROLOL SUCCINATE 100 MG TAB.ER.24H PO SCH (06:47)
[2018-11-21] MEDS: ACETAMINOPHEN 325 MG TABLET PO PRN ×3 (06:52→20:16)
[2018-11-21 07:10] VITALS: BP 156/70
[2018-11-21] MEDS: CHOLECALCIFEROL 1,000 UNIT TABLET PO SCH (08:49)
[2018-11-21] MEDS: EZETIMIBE 10 MG TABLET PO SCH (08:49)
[2018-11-21] MEDS: ASPIRIN 81 MG TABLET EC PO SCH (08:49)
[2018-11-21] MEDS: DOXAZOSIN 1MG TABLET PO SCH ×2 (08:49→20:14)
[2018-11-21] MEDS: MULTIVITS,STRESS FORMULA 1 TABLET PO SCH (08:49)
[2018-11-21] MEDS: CLOPIDOGREL 75 MG TABLET PO SCH (08:50)
[2018-11-21] MEDS: CALCIUM/VITAMIN D3 250-125 TABLET PO SCH (08:50)
[2018-11-21] MEDS: FAMOTIDINE 20 MG TABLET PO SCH (08:50)
[2018-11-21] MEDS: ISOSORBIDE MONONITRATE ER 30 MG TABLET PO SCH (08:50)
[2018-11-21] MEDS: SENNA/DOCUSATE TABLET PO SCH (08:50)
[2018-11-21] MEDS: LOSARTAN 50MG TABLET PO SCH (08:51)
[2018-11-21] MEDS: SODIUM CHLORIDE FLUSH 10ML SYR IVF SCH ×2 (08:51→20:15)
[2018-11-21] MEDS: PAROXETINE HCL 25 MG HOMEMEDPO SCH (09:00)
[2018-11-21] MEDS: INSULIN GLARGINE 100 UNITS/ML, PEN SQ-INSULIN SCH ×2 (09:00→20:15)
[2018-11-21] MEDS ORDERED: FUROSEMIDE 40 MG/4 ML IV SCH ×2 (09:00→21:00)
[2018-11-21] MEDS: INSULIN LISPRO 100 UNITS/ML, PEN SQ-INSULIN SCH ×4 (09:01→20:14)
[2018-11-21 13:43] VITALS: BP 114/65
[2018-11-21 19:15] VITALS: BP 125/65
[2018-11-22] MEDS: METOPROLOL SUCCINATE 100 MG TAB.ER.24H PO SCH (05:03)
[2018-11-22] MEDS: HEPARIN 5,000 UNITS/ML, 1ML SQ SCH ×2 (05:03→13:08)
[2018-11-22] MEDS: ACETAMINOPHEN 325 MG TABLET PO PRN (05:03)
[2018-11-22] MEDS: LEVOTHYROXINE 150 MCG TABLET PO SCH (05:03)
[2018-11-22 05:07] VITALS: BP 152/76
[2018-11-22 05:17] LABS: ANION GAP 9 mmol/L (5-15); CALCIUM 9.8 mg/dL (8.5-10.1); CHLORIDE 98 mmol/L (98-107)
[2018-11-22] MEDS ORDERED: POTASSIUM CHLORIDE 20 MEQ TAB.ER.PRT PO ONE (07:00)
[2018-11-22 07:06] LABS: ALBUMIN 2.8 g/dL (3.4-5.0)
[2018-11-22 07:11] LABS: BILIRUBIN, DIRECT 0.1 mg/dL (0.1-0.2); BILIRUBIN,INDIRECT 0.3 mg/dL (0.0-2.0); BILIRUBIN,TOTAL 0.4 mg/dL (0.2-1.0)
[2018-11-22 07:34] VITALS: BP 117/68
[2018-11-22 08:36] LABS: BASOPHILS # (AUTO) 0.04 x10^3/uL (0-0.1); BASOPHILS % (AUTO) 1 % (0-1); EOSINOPHILS # (AUTO) 0.01 x10^3/uL (0-0.4); EOSINOPHILS % (AUTO) 0 % (1-7); LYMPHOCYTES # (AUTO) 1.19 x10^3/uL (1-3.4); LYMPHOCYTES % (AUTO) 25 % (22-44); MD NO; MEAN CORPUSCULAR HEMOGLOBIN 26.6 pg (27.0-34.8); MEAN CORPUSCULAR HGB CONC 32.8 g/dL (32.4-35.8); MEAN CORPUSCULAR VOLUME 81.1 fL (80-100); MEAN PLATELET VOLUME 8.4 fL (7.4-10.4); MONOCYTES # (AUTO) 0.56 x10^3/uL (0.2-0.8); MONOCYTES % (AUTO) 12 % (2-9); NEUTROPHILS # (AUTO) 3.02 x10^3/uL (1.8-6.8); NEUTROPHILS % (AUTO) 63 % (42-75); PLATELET COUNT 278 x10^3/uL (130-400); RED CELL DISTRIBUTION WIDTH 17.6 % (9.6-15.2)
[2018-11-22] MEDS ORDERED: FUROSEMIDE 40 MG TABLET PO SCH (09:00)
[2018-11-22] MEDS: ASPIRIN 81 MG TABLET EC PO SCH (09:14)
[2018-11-22] MEDS: MULTIVITS,STRESS FORMULA 1 TABLET PO SCH (09:14)
[2018-11-22] MEDS: DOXAZOSIN 1MG TABLET PO SCH (09:15)
[2018-11-22] MEDS: CLOPIDOGREL 75 MG TABLET PO SCH (09:16)
[2018-11-22] MEDS: EZETIMIBE 10 MG TABLET PO SCH (09:16)
[2018-11-22] MEDS: SENNA/DOCUSATE TABLET PO SCH (09:16)
[2018-11-22] MEDS: ISOSORBIDE MONONITRATE ER 30 MG TABLET PO SCH (09:16)
[2018-11-22] MEDS: LOSARTAN 50MG TABLET PO SCH (09:17)
[2018-11-22] MEDS: CHOLECALCIFEROL 1,000 UNIT TABLET PO SCH (09:17)
[2018-11-22] MEDS: FAMOTIDINE 20 MG TABLET PO SCH (09:17)
[2018-11-22] MEDS: INSULIN LISPRO 100 UNITS/ML, PEN SQ-INSULIN SCH ×2 (09:18→11:39)
[2018-11-22] MEDS: INSULIN GLARGINE 100 UNITS/ML, PEN SQ-INSULIN SCH (09:19)
[2018-11-22] MEDS: PAROXETINE HCL 25 MG HOMEMEDPO SCH (09:22)
[2018-11-22] MEDS: SODIUM CHLORIDE FLUSH 10ML SYR IVF SCH (09:22)
[2018-11-22] MEDS: CALCIUM/VITAMIN D3 250-125 TABLET PO SCH (09:22)
[2018-11-22] MEDS ORDERED: LEVO112T4 PO (10:29)
[2018-11-22] MEDS ORDERED: FURO40TA6 PO (10:29)
== END 2018-11-22 14:06 | disposition home health service (06) | DRG 291 ==
LOC: ED 19:38 → EDIP 20:33 → 5SO 22:16 → DCLOUNGE 11-22 13:45
PROVIDERS: ADMIT Family Medicine; ATTEND Internal Medicine
DX: I13.0 Hypertensive heart and chronic kidney disease with heart failure and stage 1 through stage 4 chronic kidney disease, or unspecified chronic kidney disease (principal); I50.33 Acute on chronic diastolic (congestive) heart failure; E87.1 Hypo-osmolality and hyponatremia; N18.3 Chronic kidney disease, stage 3 (moderate); I25.2 Old myocardial infarction; I25.10 Atherosclerotic heart disease of native coronary artery without angina pectoris; E11.22 Type 2 diabetes mellitus with diabetic chronic kidney disease; I25.5 Ischemic cardiomyopathy; E78.5 Hyperlipidemia, unspecified; E03.9 Hypothyroidism, unspecified; Z66 Do not resuscitate; E87.6 Hypokalemia; E11.65 Type 2 diabetes mellitus with hyperglycemia; D63.8 Anemia in other chronic diseases classified elsewhere; E88.09 Other disorders of plasma-protein metabolism, not elsewhere classified; I27.20 Pulmonary hypertension, unspecified; I08.1 Rheumatic disorders of both mitral and tricuspid valves; E11.21 Type 2 diabetes mellitus with diabetic nephropathy; Z95.5 Presence of coronary angioplasty implant and graft; Z79.4 Long term (current) use of insulin; Z90.710 Acquired absence of both cervix and uterus; Z90.49 Acquired absence of other specified parts of digestive tract; Z82.49 Family history of ischemic heart disease and other diseases of the circulatory system; Z83.3 Family history of diabetes mellitus; Z88.8 Allergy status to other drugs, medicaments and biological substances; Z88.1 Allergy status to other antibiotic agents; Z88.2 Allergy status to sulfonamides; Z79.899 Other long term (current) drug therapy
CPT/HCPCS: 36415; 71046; 80048; 80053; 80069; 80076; 81001; 82040; 82962; 83036; 83735; 83880; 84100; 84443; 84484; 85025; 87086; 93005; 94640; 99285; G0378; J1644; J1940; J7613; Q0162; J1815

== ENCOUNTER 2019-02-10 09:46 | Inpatient (IN) | payer MEDICARE, OTHER ==
[~2019-02-10] VITALS: Ht 154.9 cm; Wt 67.5 kg
[~2019-02-10 09:46] MED LIST changes: -DOXY100T10 PO; +DOXY100T23 PO; +LEVO112T4 PO
[2019-02-10] MEDS ORDERED: SODIUM CHLORIDE FLUSH 10ML SYR IVF ONE (10:00)
[2019-02-10] MEDS ORDERED: SODIUM CHLORIDE 0.9% 1,000ML IVBOLUS ONE ×2 (10:00→11:30)
[2019-02-10] MEDS ORDERED: VALS40TA2 PO (10:03)
--- NOTE | 2019-02-10 10:03 | NUR ---
PT BIB EMS FOR HIGH BLOOD SUGAR <600. PT HAS CO OF N/V/D/ INCREASED THIRST, URINATION AND GENERALIZED BODY PAIN. PT STATES HER BLOOD SUGAR WAS 500 LAST NIGHT AND COMPLIANT WITH INSULIN, NOVOLOG AND LANTUS. PT DID NOT CHECK SUGAR THIS AM AND CALLED EMS W SYMPTOMS. . PT WAS GIVEN 500 ML NS AND ZOFRAN IN ROUTE. PT IS A&O X4, COMPLAINS OF THIRST. TIME ANALYSIS CLERK APPLIED. POC TAKEN , READS <600. MD AT BEDSIDE DISCUSSING POC. WAITING FOR FURTHER ORDERS. HX OF MN W STENT X2 IN JUNE, CHF.
--- NOTE | 2019-02-10 10:22 | NUR ---
LAB AT BEDSIDE.
--- NOTE | 2019-02-10 10:52 | NUR ---
UA COMPLETE. CXR IN PROGRESS. PT HAS NO NEEDS AT THIS TIME. GIVEN WARM BLANKET. VS STABLE. FLUIDS INFUSING
[2019-02-10 10:53] LABS: MEAN CORPUSCULAR HEMOGLOBIN 24.8 pg (27.0-34.8); MEAN CORPUSCULAR HGB CONC 30.9 g/dL (32.4-35.8); MEAN CORPUSCULAR VOLUME 80.3 fL (80-100); MEAN PLATELET VOLUME 10.1 fL (7.4-10.4); PLATELET COUNT 171 x10^3/uL (130-400); RED CELL DISTRIBUTION WIDTH 17.5 % (9.6-15.2)
[2019-02-10 10:58] LABS: MICROSCOPIC NOT IND
[2019-02-10 11:00] LABS: CULTURE INDICATED? NO
[2019-02-10 11:04] LABS: ALANINE AMINOTRANSFERASE 21 U/L (12-78); ANION GAP 26 mmol/L (5-15); CALCIUM 9.6 mg/dL (8.5-10.1); CHLORIDE 97 mmol/L (98-107); CREATININE 1.82 mg/dL (0.55-1.02)
[2019-02-10 11:06] LABS: ALKALINE PHOSPHATASE 107 U/L (45-117); BILIRUBIN,TOTAL 0.9 mg/dL (0.2-1.0); TOTAL PROTEIN 7.3 g/dL (6.4-8.2)
[2019-02-10] MEDS ORDERED: REGULAR INSULIN 62.5 UNITS in SODIUM CHLORIDE 0.9% 249.375 ML IV PRN (11:19)
[2019-02-10 11:21] LABS: MD YES
[2019-02-10 11:22] LABS: BANDS%(MANUAL) 1 % (0-7); BASOS% (MANUAL) 1 % (0-1); LYMPH#(MANUAL) 0.58 x10^3/uL (1-3.4); LYMPHS% (MANUAL) 6 % (22-44); SEG#(MANUAL) 8.92 x10^3/uL (1.8-6.8); SEGS% (MANUAL) 92 % (42-75)
[2019-02-10 11:23] LABS: ANISOCYTOSIS 1+; HYPOCHROMIA 1+; MICROCYTOSIS 1+; OVALOCYTES 1+
[2019-02-10 11:24] LABS: <PLATELET ESTIMATE> ADEQUATE; <PLT MORPHOLOGY> NORMAL PLT MORPH; POLYCHROMASIA 1+
[2019-02-10 11:25] LABS: ACETONE, SERUM Large (80mg/dL) mg/dL (Negative)
[2019-02-10 11:30] LABS: PH, VENOUS 7.123 pH (7.320-7.420)
[2019-02-10 11:32] LABS: FIO2 ROOM AIR %
--- NOTE | 2019-02-10 11:57 | NUR ---
RECEIVED REPORT FROM BRENDA BRIAN. ASSUMING CARE AT THIS TIME.
[2019-02-10] MEDS ORDERED: ENOXAPARIN 30 MG/0.3 ML SQ SCH (12:00)
[2019-02-10] MEDS ORDERED: ONDANSETRON ODT 4 MG PO PRN (12:00)
[2019-02-10] MEDS ORDERED: POLYETHYLENE GLYCOL 17 GM PACKET PO PRN (12:00)
[2019-02-10] MEDS ORDERED: BISACODYL 10 MG SUPP PR PRN (12:00)
[2019-02-10] MEDS ORDERED: LABETALOL 5MG/ML, 20ML IVPush PRN (12:00)
[2019-02-10] MEDS ORDERED: OXYcodone IR 5MG TABLET PO PRN (12:00)
[2019-02-10] MEDS ORDERED: SODIUM CHLORIDE FLUSH 10ML SYR IVF PRN (12:00)
[2019-02-10] MEDS ORDERED: ONDANSETRON 2MG/ML, 2ML IVPush PRN (12:00)
--- NOTE | 2019-02-10 12:00 | NUR ---
Report to antelmo
[2019-02-10] MEDS: REGULAR INSULIN 62.5 UNITS in SODIUM CHLORIDE 0.9% 249.375 ML IV PRN ×2 (12:22→19:22)
--- NOTE | 2019-02-10 12:25 | NUR ---
PER DR WORTHY, ICU, START INSULIN TITRATIONS AT 3UNITS/HR. IV INSULIN ADMIN PER MD ORDER, VERIFIED WITH ANOTHER RN. PT RESTING COMFORTABLY [facility] [place]
[2019-02-10] MEDS: D5%-0.45NACL+KCL 20MEQ 1,000 ML IV SCH ×3 (12:47→22:08)
--- NOTE | 2019-02-10 12:47 | NUR ---
REPORT TO DANIELA
[2019-02-10] MEDS: SODIUM CHLORIDE 0.9% 1,000 ML IV SCH ×2 (13:28→20:05)
[2019-02-10] MEDS ORDERED: [UNRECOGNIZED DRUG - REMARK] MC SCH (13:30)
[2019-02-10] MEDS ORDERED: ENOXAPARIN 40 MG/0.4 ML SQ SCH (13:42)
[2019-02-10 15:00] LABS: ANION GAP 26 mmol/L (5-15); CHLORIDE 101 mmol/L (98-107); CREATININE 1.92 mg/dL (0.55-1.02)
[2019-02-10 18:20] LABS: ANION GAP 17 mmol/L (5-15); CALCIUM 9.1 mg/dL (8.5-10.1); CHLORIDE 105 mmol/L (98-107)
[2019-02-10] MEDS: DOXAZOSIN 1MG TABLET PO SCH (21:00)
[2019-02-11 02:41] LABS: ANION GAP 8 mmol/L (5-15); CALCIUM 8.7 mg/dL (8.5-10.1); CHLORIDE 106 mmol/L (98-107)
[2019-02-11 02:42] LABS: CREATININE 1.65 mg/dL (0.55-1.02)
[2019-02-11 04:16] LABS: BASOPHILS # (AUTO) 0.11 x10^3/uL (0-0.1); BASOPHILS % (AUTO) 1 % (0-1); EOSINOPHILS # (AUTO) 0.01 x10^3/uL (0-0.4); EOSINOPHILS % (AUTO) 0 % (1-7); LYMPHOCYTES # (AUTO) 0.58 x10^3/uL (1-3.4); LYMPHOCYTES % (AUTO) 5 % (22-44); MD NO; MEAN CORPUSCULAR HEMOGLOBIN 25.3 pg (27.0-34.8); MEAN CORPUSCULAR HGB CONC 32.1 g/dL (32.4-35.8); MEAN CORPUSCULAR VOLUME 78.8 fL (80-100); MEAN PLATELET VOLUME 9.3 fL (7.4-10.4); MONOCYTES # (AUTO) 0.51 x10^3/uL (0.2-0.8); MONOCYTES % (AUTO) 5 % (2-9); NEUTROPHILS # (AUTO) 10.12 x10^3/uL (1.8-6.8); NEUTROPHILS % (AUTO) 89 % (42-75); PLATELET COUNT 178 x10^3/uL (130-400); RED BLOOD COUNT 4.17 x10^6/uL (3.82-5.3); RED CELL DISTRIBUTION WIDTH 17.4 % (9.6-15.2)
[2019-02-11 04:27] LABS: ALANINE AMINOTRANSFERASE 27 U/L (12-78); ALBUMIN 3.4 g/dL (3.4-5.0); ANION GAP 6 mmol/L (5-15); CALCIUM 8.6 mg/dL (8.5-10.1); CHLORIDE 107 mmol/L (98-107); CREATININE 1.58 mg/dL (0.55-1.02)
[2019-02-11 04:29] LABS: ALKALINE PHOSPHATASE 82 U/L (45-117); BILIRUBIN,TOTAL 0.5 mg/dL (0.2-1.0); TOTAL PROTEIN 6.3 g/dL (6.4-8.2)
[2019-02-11] MEDS ORDERED: METOPROLOL SUCCINATE 25 MG TAB.ER.24H ONE (05:32)
[2019-02-11] MEDS: METOPROLOL SUCCINATE 100 MG TAB.ER.24H PO SCH (05:39)
[2019-02-11] MEDS: REGULAR INSULIN 62.5 UNITS in SODIUM CHLORIDE 0.9% 249.375 ML IV PRN (05:41)
[2019-02-11] MEDS: D5%-0.45NACL+KCL 20MEQ 1,000 ML IV SCH (05:51)
[2019-02-11] MEDS: SODIUM CHLORIDE 0.9% 1,000 ML IV SCH ×2 (08:27→20:42)
[2019-02-11] MEDS: CHOLECALCIFEROL 1,000 UNIT TABLET PO SCH (08:46)
[2019-02-11] MEDS: CLOPIDOGREL 75 MG TABLET PO SCH (08:46)
[2019-02-11] MEDS: SENNA/DOCUSATE TABLET PO SCH (08:46)
[2019-02-11] MEDS: EZETIMIBE 10 MG TABLET PO SCH (08:47)
[2019-02-11] MEDS: ASPIRIN 81 MG TABLET EC PO SCH (08:47)
[2019-02-11] MEDS: CALCIUM/VITAMIN D3 250-125 TABLET PO SCH (08:47)
[2019-02-11] MEDS: ISOSORBIDE MONONITRATE ER 30 MG TABLET PO SCH (08:47)
[2019-02-11] MEDS: DOXAZOSIN 1MG TABLET PO SCH ×2 (08:47→20:41)
[2019-02-11] MEDS: LEVOTHYROXINE 112 MCG TABLET PO SCH (08:48)
[2019-02-11] MEDS: PAROXETINE HCL 25 MG HOMEMEDPO SCH (08:50)
[2019-02-11] MEDS: TEMPLATE NON-FORMULARY MED. (Valsartan** (Diovan**) 40 MG) PO SCH (09:00)
[2019-02-11] MEDS ORDERED: LOSARTAN 50MG TABLET PO SCH (09:00)
[2019-02-11] MEDS: INSULIN LISPRO 100 UNITS/ML, PEN SQ-INSULIN SCH ×4 (09:18→20:41)
[2019-02-11] MEDS: INSULIN GLARGINE 100 UNITS/ML, PEN SQ-INSULIN SCH ×2 (09:19→20:42)
[2019-02-11] MEDS: ENOXAPARIN 30 MG/0.3 ML SQ SCH (14:29)
[2019-02-11 20:10] VITALS: BP 110/73
[2019-02-11] MEDS: ACETAMINOPHEN 325 MG TABLET PO PRN (20:41)
[2019-02-12 01:43] VITALS: BP 128/76
[2019-02-12 04:33] LABS: BASOPHILS # (AUTO) 0.03 x10^3/uL (0-0.1); BASOPHILS % (AUTO) 0 % (0-1); EOSINOPHILS # (AUTO) 0.01 x10^3/uL (0-0.4); EOSINOPHILS % (AUTO) 0 % (1-7); LYMPHOCYTES # (AUTO) 1.16 x10^3/uL (1-3.4); LYMPHOCYTES % (AUTO) 17 % (22-44); MD NO; MEAN CORPUSCULAR HEMOGLOBIN 25.5 pg (27.0-34.8); MEAN CORPUSCULAR HGB CONC 31.8 g/dL (32.4-35.8); MEAN CORPUSCULAR VOLUME 80.1 fL (80-100); MEAN PLATELET VOLUME 9.6 fL (7.4-10.4); MONOCYTES # (AUTO) 0.75 x10^3/uL (0.2-0.8); MONOCYTES % (AUTO) 11 % (2-9); NEUTROPHILS # (AUTO) 4.96 x10^3/uL (1.8-6.8); NEUTROPHILS % (AUTO) 72 % (42-75); PLATELET COUNT 145 x10^3/uL (130-400); RED BLOOD COUNT 4.19 x10^6/uL (3.82-5.3); RED CELL DISTRIBUTION WIDTH 18.2 % (9.6-15.2)
[2019-02-12 04:42] LABS: ANION GAP 5 mmol/L (5-15); CALCIUM 8.8 mg/dL (8.5-10.1); CHLORIDE 115 mmol/L (98-107)
[2019-02-12 04:44] LABS: CREATININE 1.13 mg/dL (0.55-1.02)
[2019-02-12 06:12] VITALS: BP 130/76
[2019-02-12] MEDS: METOPROLOL SUCCINATE 100 MG TAB.ER.24H PO SCH (06:17)
[2019-02-12] MEDS: INSULIN GLARGINE 100 UNITS/ML, PEN SQ-INSULIN SCH ×2 (08:01→21:00)
[2019-02-12] MEDS: CLOPIDOGREL 75 MG TABLET PO SCH (08:02)
[2019-02-12] MEDS: CHOLECALCIFEROL 1,000 UNIT TABLET PO SCH (08:02)
[2019-02-12] MEDS: INSULIN LISPRO 100 UNITS/ML, PEN SQ-INSULIN SCH ×4 (08:02→22:20)
[2019-02-12] MEDS: LEVOTHYROXINE 112 MCG TABLET PO SCH (08:02)
[2019-02-12] MEDS: SENNA/DOCUSATE TABLET PO SCH (08:03)
[2019-02-12] MEDS: ASPIRIN 81 MG TABLET EC PO SCH (08:03)
[2019-02-12] MEDS: CALCIUM/VITAMIN D3 250-125 TABLET PO SCH (08:03)
[2019-02-12] MEDS: ISOSORBIDE MONONITRATE ER 30 MG TABLET PO SCH (08:03)
[2019-02-12] MEDS: EZETIMIBE 10 MG TABLET PO SCH (08:03)
[2019-02-12] MEDS: DOXAZOSIN 1MG TABLET PO SCH ×2 (08:04→22:19)
[2019-02-12] MEDS: TEMPLATE NON-FORMULARY MED. (Valsartan** (Diovan**) 40 MG) PO SCH (09:00)
[2019-02-12] MEDS: PAROXETINE HCL 25 MG HOMEMEDPO SCH (09:00)
[2019-02-12] MEDS: ACETAMINOPHEN 325 MG TABLET PO PRN ×2 (10:54→18:20)
[2019-02-12] MEDS: SODIUM CHLORIDE 0.9% 1,000 ML IV SCH (10:55)
[2019-02-12 13:30] VITALS: BP 128/80
[2019-02-12] MEDS: ENOXAPARIN 30 MG/0.3 ML SQ SCH (13:43)
[2019-02-12 20:05] VITALS: BP 158/77
[2019-02-13] MEDS: SODIUM CHLORIDE 0.9% 1,000 ML IV SCH (00:20)
[2019-02-13 02:02] VITALS: BP 157/85
[2019-02-13] MEDS: METOPROLOL SUCCINATE 100 MG TAB.ER.24H PO SCH (05:41)
[2019-02-13] MEDS: LEVOTHYROXINE 125 MCG TABLET PO SCH (06:18)
[2019-02-13] MEDS: INSULIN LISPRO 100 UNITS/ML, PEN SQ-INSULIN SCH ×4 (07:00→20:45)
[2019-02-13 08:48] VITALS: BP 185/84
[2019-02-13] MEDS ORDERED: LEVOTHYROXINE 125 MCG TABLET PO SCH (09:00)
[2019-02-13] MEDS: TEMPLATE NON-FORMULARY MED. (Valsartan** (Diovan**) 40 MG) PO SCH (09:00)
[2019-02-13] MEDS: PAROXETINE HCL 25 MG HOMEMEDPO SCH (09:00)
[2019-02-13] MEDS: CHOLECALCIFEROL 1,000 UNIT TABLET PO SCH (09:07)
[2019-02-13] MEDS: CALCIUM/VITAMIN D3 250-125 TABLET PO SCH (09:07)
[2019-02-13] MEDS: DOXAZOSIN 1MG TABLET PO SCH ×2 (09:07→20:36)
[2019-02-13] MEDS: ISOSORBIDE MONONITRATE ER 30 MG TABLET PO SCH (09:08)
[2019-02-13] MEDS: ASPIRIN 81 MG TABLET EC PO SCH (09:08)
[2019-02-13] MEDS: EZETIMIBE 10 MG TABLET PO SCH (09:09)
[2019-02-13] MEDS: SENNA/DOCUSATE TABLET PO SCH (09:09)
[2019-02-13] MEDS: CLOPIDOGREL 75 MG TABLET PO SCH (09:09)
[2019-02-13] MEDS: INSULIN GLARGINE 100 UNITS/ML, PEN SQ-INSULIN SCH ×2 (09:11→20:45)
[2019-02-13] MEDS: ACETAMINOPHEN 325 MG TABLET PO PRN ×2 (09:36→20:49)
[2019-02-13 13:47] VITALS: BP 177/74
[2019-02-13] MEDS: ENOXAPARIN 30 MG/0.3 ML SQ SCH (16:23)
[2019-02-13 20:22] VITALS: BP 137/64
[2019-02-14 01:49] VITALS: BP 172/75
[2019-02-14] MEDS: METOPROLOL SUCCINATE 100 MG TAB.ER.24H PO SCH (06:17)
[2019-02-14] MEDS: LEVOTHYROXINE 125 MCG TABLET PO SCH (06:18)
[2019-02-14] MEDS: INSULIN LISPRO 100 UNITS/ML, PEN SQ-INSULIN SCH ×4 (07:00→21:28)
[2019-02-14 07:20] VITALS: BP 150/79
[2019-02-14] MEDS: TEMPLATE NON-FORMULARY MED. (Valsartan** (Diovan**) 40 MG) PO SCH (09:00)
[2019-02-14] MEDS: PAROXETINE HCL 25 MG HOMEMEDPO SCH (09:00)
[2019-02-14] MEDS: DOXAZOSIN 1MG TABLET PO SCH ×2 (09:42→21:27)
[2019-02-14] MEDS: EZETIMIBE 10 MG TABLET PO SCH (09:42)
[2019-02-14] MEDS: SENNA/DOCUSATE TABLET PO SCH (09:43)
[2019-02-14] MEDS: CALCIUM/VITAMIN D3 250-125 TABLET PO SCH (09:43)
[2019-02-14] MEDS: ISOSORBIDE MONONITRATE ER 30 MG TABLET PO SCH (09:43)
[2019-02-14] MEDS: ASPIRIN 81 MG TABLET EC PO SCH (09:43)
[2019-02-14] MEDS: CHOLECALCIFEROL 1,000 UNIT TABLET PO SCH (09:43)
[2019-02-14] MEDS: CLOPIDOGREL 75 MG TABLET PO SCH (09:43)
[2019-02-14] MEDS: INSULIN GLARGINE 100 UNITS/ML, PEN SQ-INSULIN SCH ×2 (09:44→21:27)
[2019-02-14] MEDS: ACETAMINOPHEN 325 MG TABLET PO PRN ×2 (12:20→23:49)
[2019-02-14 12:30] VITALS: BP 178/80
[2019-02-14] MEDS ORDERED: ENOXAPARIN 40 MG/0.4 ML SQ SCH (16:00)
[2019-02-14 19:34] VITALS: BP 162/79
[2019-02-14] MEDS: hydrALAzine 20 MG/ML, 1ML IV PRN (23:49)
[2019-02-15 01:13] VITALS: BP 141/64
[2019-02-15 05:42] LABS: ANION GAP 9 mmol/L (5-15); CALCIUM 8.9 mg/dL (8.5-10.1); CHLORIDE 116 mmol/L (98-107)
[2019-02-15 05:44] LABS: CREATININE 0.88 mg/dL (0.55-1.02)
[2019-02-15 06:00] LABS: BASOPHILS # (AUTO) 0.02 x10^3/uL (0-0.1); BASOPHILS % (AUTO) 0 % (0-1); EOSINOPHILS % (AUTO) 0 % (1-7); LYMPHOCYTES # (AUTO) 0.95 x10^3/uL (1-3.4); LYMPHOCYTES % (AUTO) 19 % (22-44); MD NO; MEAN CORPUSCULAR HEMOGLOBIN 24.7 pg (27.0-34.8); MEAN CORPUSCULAR HGB CONC 31.6 g/dL (32.4-35.8); MEAN CORPUSCULAR VOLUME 78.1 fL (80-100); MEAN PLATELET VOLUME 9.7 fL (7.4-10.4); MONOCYTES # (AUTO) 0.41 x10^3/uL (0.2-0.8); MONOCYTES % (AUTO) 8 % (2-9); NEUTROPHILS # (AUTO) 3.66 x10^3/uL (1.8-6.8); NEUTROPHILS % (AUTO) 73 % (42-75); PLATELET COUNT 125 x10^3/uL (130-400); RED BLOOD COUNT 4.44 x10^6/uL (3.82-5.3); RED CELL DISTRIBUTION WIDTH 18.3 % (9.6-15.2)
[2019-02-15] MEDS: LEVOTHYROXINE 125 MCG TABLET PO SCH (06:07)
[2019-02-15] MEDS: METOPROLOL SUCCINATE 100 MG TAB.ER.24H PO SCH (06:08)
[2019-02-15] MEDS: INSULIN LISPRO 100 UNITS/ML, PEN SQ-INSULIN SCH ×2 (07:00→11:07)
[2019-02-15] MEDS ORDERED: LEVO125T PO (07:00)
[2019-02-15] MEDS ORDERED: RANITIDINE PO (07:00)
[2019-02-15 07:52] VITALS: BP 182/71
[2019-02-15] MEDS: CLOPIDOGREL 75 MG TABLET PO SCH (07:52)
[2019-02-15] MEDS: ISOSORBIDE MONONITRATE ER 30 MG TABLET PO SCH (07:52)
[2019-02-15] MEDS: EZETIMIBE 10 MG TABLET PO SCH (07:52)
[2019-02-15] MEDS: SENNA/DOCUSATE TABLET PO SCH (07:52)
[2019-02-15] MEDS: CALCIUM/VITAMIN D3 250-125 TABLET PO SCH (07:52)
[2019-02-15] MEDS: CHOLECALCIFEROL 1,000 UNIT TABLET PO SCH (07:52)
[2019-02-15] MEDS: PAROXETINE HCL 25 MG HOMEMEDPO SCH (07:53)
[2019-02-15] MEDS: INSULIN GLARGINE 100 UNITS/ML, PEN SQ-INSULIN SCH (07:53)
[2019-02-15] MEDS: TEMPLATE NON-FORMULARY MED. (Valsartan** (Diovan**) 40 MG) PO SCH (07:53)
[2019-02-15] MEDS: DOXAZOSIN 1MG TABLET PO SCH (07:53)
[2019-02-15] MEDS: ASPIRIN 81 MG TABLET EC PO SCH (07:53)
[2019-02-15] MEDS: hydrALAzine 20 MG/ML, 1ML IV PRN (08:09)
[2019-02-15] MEDS: ACETAMINOPHEN 325 MG TABLET PO PRN (11:06)
== END 2019-02-15 12:09 | disposition home or self-care (01) | DRG 637 ==
LOC: ED 11:41 → EDIP 11:42 → ICU 13:17 → 3N 02-11 12:48 → DCLOUNGE 02-15 11:56
PROVIDERS: ADMIT Internal Medicine; ATTEND Internal Medicine
PROC: 0T9B70Z Drainage of Bladder with Drainage Device, Via Natural or Artificial Opening (ICD-10-PCS; principal; 2019-02-10)
DX: E10.10 Type 1 diabetes mellitus with ketoacidosis without coma (principal); N17.0 Acute kidney failure with tubular necrosis; I50.32 Chronic diastolic (congestive) heart failure; I13.0 Hypertensive heart and chronic kidney disease with heart failure and stage 1 through stage 4 chronic kidney disease, or unspecified chronic kidney disease; Z88.8 Allergy status to other drugs, medicaments and biological substances; E03.9 Hypothyroidism, unspecified; E10.22 Type 1 diabetes mellitus with diabetic chronic kidney disease; E78.5 Hyperlipidemia, unspecified; F32.9 Major depressive disorder, single episode, unspecified; I05.2 Rheumatic mitral stenosis with insufficiency; I25.10 Atherosclerotic heart disease of native coronary artery without angina pectoris; I25.2 Old myocardial infarction; I27.20 Pulmonary hypertension, unspecified; M81.0 Age-related osteoporosis without current pathological fracture; N18.9 Chronic kidney disease, unspecified; Z82.49 Family history of ischemic heart disease and other diseases of the circulatory system; Z83.3 Family history of diabetes mellitus; Z90.710 Acquired absence of both cervix and uterus; Z95.5 Presence of coronary angioplasty implant and graft
CPT/HCPCS: 36415; 71045; 80048; 80053; 81003; 82010; 82803; 82947; 82962; 83036; 83735; 84100; 85025; 87081; 93005; 96360; 96361; 96372; 99291; G0378; J1650; J1815; J0360; J3480; J7030; J7050

== ENCOUNTER 2019-03-13 16:16 | Inpatient (IN) | payer MEDICARE, OTHER ==
[~2019-03-13] VITALS: Ht 154.9 cm; Wt 67.4 kg
[~2019-03-13 16:16] MED LIST changes: +LEVO125T PO
--- NOTE | 2019-03-13 16:29 | NUR ---
THIS IS A 78 YO FEMALE BIB [facility] FROM HOME FOR N/V X2 DAYS. PATIENT STATES SHE HAS BEEN UNABLE TO KEEP DOWN FLUID OR FOOD SINE YESTERDAY. PATIENT HAS HX T1DM, BLOOD SUGAR EN ROUTE AND IN [facility]-ED STATE GREATER THAN 600. PATIENT RECENTLY HAD BLADDER INFECTION AND WAS ON AUGMENTIN. PATIENT HAS HX CHF, [place] 4 YEARS AGO, T1DM AND INSULIN DEPENDENT. DENIES DIARRHEA, DENIES ABD PAIN, DENIES SOB/CP, NO OTHER SYMPTOMS AT THIS TIME. VSS EN ROUTE WITH [facility], PIV PLACED BY [place], WAS GIVEN 4MG ZOFRAN AND 250ML BOLUS OF FLUID. PATIENT PLACED ON GEOTECHNICIAN, NSR NOTED, CONTINUOUS SPO2 AT 93%, CYCLE BP Q1HR. CALL LIGHT IN REACH. DENIES NEEDS AT THIS TIME. MD TO ROOM.
[2019-03-13] MEDS ORDERED: LACTATED RINGERS 1,000 ML IVBOLUS ONE ×2 (16:30→17:30)
[2019-03-13] MEDS ORDERED: LOSA50TA14 PO (16:41)
[2019-03-13 17:03] LABS: BASOPHILS # (AUTO) 0.01 x10^3/uL (0-0.1); BASOPHILS % (AUTO) 0 % (0-1); EOSINOPHILS % (AUTO) 0 % (1-7); LYMPHOCYTES # (AUTO) 0.38 x10^3/uL (1-3.4); LYMPHOCYTES % (AUTO) 6 % (22-44); MD NO; MEAN CORPUSCULAR HEMOGLOBIN 23.8 pg (27.0-34.8); MEAN CORPUSCULAR HGB CONC 31.2 g/dL (32.4-35.8); MEAN CORPUSCULAR VOLUME 76.3 fL (80-100); MEAN PLATELET VOLUME 10.8 fL (7.4-10.4); MONOCYTES # (AUTO) 0.16 x10^3/uL (0.2-0.8); MONOCYTES % (AUTO) 2 % (2-9); NEUTROPHILS # (AUTO) 5.87 x10^3/uL (1.8-6.8); NEUTROPHILS % (AUTO) 92 % (42-75); PH, VENOUS 7.173 pH (7.320-7.420); PLATELET COUNT 199 x10^3/uL (130-400); RED BLOOD COUNT 5.47 x10^6/uL (3.82-5.3)
--- NOTE | 2019-03-13 17:04 | NUR ---
IVF STARTED, BLOOD CULTURES X2 OBTAINED BY LAB, STRAIGHT CATH PERFORMED TO OBTAIN UA, PATIENT TOLERATED WELL. CALL LIGHT IN REACH, DENIES NEEDS AT THIS TIME. UA WALKED TO LAB.
[2019-03-13 17:09] LABS: MICROSCOPIC NOT IND
[2019-03-13 17:12] LABS: CULTURE INDICATED? NO
[2019-03-13 17:13] LABS: ANION GAP 23 mmol/L (5-15); CALCIUM 10.2 mg/dL (8.5-10.1); CHLORIDE 92 mmol/L (98-107); CREATININE 1.76 mg/dL (0.55-1.02)
[2019-03-13 17:14] LABS: ALANINE AMINOTRANSFERASE 14 U/L (12-78); ALBUMIN 4.1 g/dL (3.4-5.0)
[2019-03-13 17:16] LABS: ALKALINE PHOSPHATASE 128 U/L (45-117); BILIRUBIN,TOTAL 0.8 mg/dL (0.2-1.0); TOTAL PROTEIN 8.2 g/dL (6.4-8.2)
[2019-03-13 17:22] LABS: ACETONE, SERUM Large (80mg/dL) mg/dL (Negative)
[2019-03-13] MEDS ORDERED: REGULAR INSULIN 62.5 UNITS in SODIUM CHLORIDE 0.9% 249.375 ML IV PRN ×2 (17:30→18:11)
[2019-03-13] MEDS ORDERED: POTASSIUM CHLORIDE 40 MEQ in SODIUM CHLORIDE 0.9% 500 ML IV ONE (17:30)
[2019-03-13] MEDS ORDERED: ONDANSETRON 2MG/ML, 2ML ONE (17:43)
--- NOTE | 2019-03-13 17:55 | NUR ---
DISCUSSED WITH ABOUT SECOND LITERAND PATIENT HX CHF. STATED SECOND LITER TO BE STARTED AFTER FIRST
[2019-03-13] MEDS ORDERED: ONDANSETRON 2MG/ML, 2ML IVPush ONE (18:00)
[2019-03-13] MEDS ORDERED: D5%-0.45% NACL 1,000 ML IV PRN (18:11)
--- NOTE | 2019-03-13 18:13 | NUR ---
SECOND PIV PLACED IN LEFT AC. IV INSULIN VERIFIED WITH SNEHAL KU AND STARTED ACCORDING TO SCALE ON MAY. IV POTASSIUM RUNNING WITH LR, VERIFIED BY PHARMACY, IN RIGHT AC.
--- NOTE | 2019-03-13 18:58 | NUR ---
REPORT GIVEN TO SNEHAL STACY. PLAN OF CARE DISCUSSED.
--- NOTE | 2019-03-13 19:24 | NUR ---
PATIENT TRANSFERRED TO CCU WITH PADMINI AND RN, TWO PURSES THAT CAME IN WITH PATIENT WENT UP TO CCU WITH PATIENT.
--- NOTE | 2019-03-13 19:25 | NUR ---
PT ASSISTED TO BEDSIDE COMMODE. PT ABLE TO TRANSFER SELF THOUGH REPORTS FATIGUE WITH ACTIVITY. SPO2 AND HR WNL. PT TRANSPORTED TO CCU X2 RNS. BELONGINGS BAGGED AND LABELLED. PURSE X2 IN BAGS.
[2019-03-13 19:43] LABS: ALANINE AMINOTRANSFERASE 13 U/L (12-78); ALBUMIN 3.3 g/dL (3.4-5.0); ANION GAP 22 mmol/L (5-15); CALCIUM 9.3 mg/dL (8.5-10.1); CHLORIDE 98 mmol/L (98-107)
[2019-03-13 19:46] LABS: ALKALINE PHOSPHATASE 103 U/L (45-117); BILIRUBIN,TOTAL 0.6 mg/dL (0.2-1.0); TOTAL PROTEIN 6.8 g/dL (6.4-8.2)
[2019-03-13] MEDS: SODIUM CHLORIDE 0.9% 1,000 ML IV SCH (20:32)
[2019-03-13] MEDS: DOXAZOSIN 1MG TABLET PO SCH (20:35)
[2019-03-13] MEDS: ACETAMINOPHEN 325 MG TABLET PO PRN (20:39)
[2019-03-13 21:22] VITALS: BP 129/54
[2019-03-14 00:51] LABS: ANION GAP 11 mmol/L (5-15); CHLORIDE 105 mmol/L (98-107); CREATININE 1.58 mg/dL (0.55-1.02)
[2019-03-14] MEDS: ONDANSETRON 2MG/ML, 2ML IVPush PRN ×2 (02:08→21:12)
[2019-03-14 04:39] LABS: BASOPHILS # (AUTO) 0.02 x10^3/uL (0-0.1); BASOPHILS % (AUTO) 0 % (0-1); EOSINOPHILS # (AUTO) 0.04 x10^3/uL (0-0.4); EOSINOPHILS % (AUTO) 1 % (1-7); LYMPHOCYTES # (AUTO) 0.78 x10^3/uL (1-3.4); LYMPHOCYTES % (AUTO) 11 % (22-44); MD NO; MEAN CORPUSCULAR HEMOGLOBIN 23.9 pg (27.0-34.8); MEAN CORPUSCULAR HGB CONC 31.9 g/dL (32.4-35.8); MEAN CORPUSCULAR VOLUME 75.1 fL (80-100); MEAN PLATELET VOLUME 9.4 fL (7.4-10.4); MONOCYTES % (AUTO) 13 % (2-9); NEUTROPHILS # (AUTO) 5.34 x10^3/uL (1.8-6.8); NEUTROPHILS % (AUTO) 75 % (42-75); PLATELET COUNT 177 x10^3/uL (130-400); RED BLOOD COUNT 4.56 x10^6/uL (3.82-5.3); RED CELL DISTRIBUTION WIDTH 17.8 % (9.6-15.2)
[2019-03-14 04:47] LABS: ANION GAP 5 mmol/L (5-15); CALCIUM 9.1 mg/dL (8.5-10.1); CHLORIDE 108 mmol/L (98-107); CREATININE 1.42 mg/dL (0.55-1.02)
[2019-03-14] MEDS: SODIUM CHLORIDE 0.9% 1,000 ML IV SCH (05:00)
[2019-03-14] MEDS: LEVOTHYROXINE 137 MCG TABLET PO SCH (05:40)
[2019-03-14] MEDS ORDERED: LEVOTHYROXINE 125 MCG TABLET PO SCH (06:00)
[2019-03-14] MEDS ORDERED: INSULIN LISPRO 100 UNITS/ML, PEN ONE (06:49)
[2019-03-14] MEDS: INSULIN LISPRO 100 UNITS/ML, PEN SQ-INSULIN SCH ×4 (07:25→21:13)
[2019-03-14] MEDS: FERROUS SULFATE 325 MG TABLET PO SCH ×2 (07:31→17:07)
[2019-03-14] MEDS: CALCIUM/VITAMIN D3 250-125 TABLET PO SCH (07:32)
[2019-03-14] MEDS: ISOSORBIDE MONONITRATE ER 30 MG TABLET PO SCH (07:32)
[2019-03-14] MEDS: CLOPIDOGREL 75 MG TABLET PO SCH (07:32)
[2019-03-14] MEDS: CHOLECALCIFEROL 1,000 UNIT TABLET PO SCH (07:32)
[2019-03-14] MEDS: DOXAZOSIN 1MG TABLET PO SCH ×2 (07:32→21:13)
[2019-03-14] MEDS: ASPIRIN 81 MG TABLET EC PO SCH (07:32)
[2019-03-14] MEDS: METOPROLOL SUCCINATE 100 MG TAB.ER.24H PO SCH (07:33)
[2019-03-14] MEDS: INSULIN GLARGINE 100 UNITS/ML, PEN SQ-INSULIN SCH ×2 (07:37→18:38)
[2019-03-14] MEDS: PAROXETINE HCL 25 MG PO SCH (07:37)
[2019-03-14] MEDS ORDERED: FAMOTIDINE 20 MG TABLET PO SCH (09:00)
[2019-03-14 10:59] LABS: TROPONIN I 0.316 ng/mL (0.000-0.045)
[2019-03-14 12:47] VITALS: BP 128/66
[2019-03-14] MEDS ORDERED: SODIUM CHLORIDE 0.9% 1,000 ML IV SCH (18:11)
[2019-03-14 18:52] VITALS: BP 145/72
[2019-03-14] MEDS ORDERED: INSULIN LISPRO 100 UNITS/ML, PEN SQ-INSULIN SCH (21:00)
[2019-03-15 05:49] LABS: CALCIUM 9.5 mg/dL (8.5-10.1); CHLORIDE 107 mmol/L (98-107)
[2019-03-15 05:50] LABS: ANION GAP 8 mmol/L (5-15); CREATININE 1.34 mg/dL (0.55-1.02)
[2019-03-15 06:08] VITALS: BP 127/69
[2019-03-15] MEDS: LEVOTHYROXINE 137 MCG TABLET PO SCH (06:10)
[2019-03-15] MEDS: METOPROLOL SUCCINATE 100 MG TAB.ER.24H PO SCH (06:10)
[2019-03-15 07:00] VITALS: BP 115/67
[2019-03-15] MEDS ORDERED: FAMOTIDINE 10 MG TAB PO SCH (09:00)
[2019-03-15] MEDS ORDERED: FAMOTIDINE 20 MG TABLET PO SCH (09:00)
[2019-03-15] MEDS: PAROXETINE HCL 25 MG PO SCH (09:00)
[2019-03-15 09:16] VITALS: BP 127/72
[2019-03-15] MEDS: INSULIN LISPRO 100 UNITS/ML, PEN SQ-INSULIN SCH ×2 (09:19→12:46)
[2019-03-15] MEDS: ACETAMINOPHEN 325 MG TABLET PO PRN (09:20)
[2019-03-15] MEDS: FERROUS SULFATE 325 MG TABLET PO SCH (09:20)
[2019-03-15] MEDS: CLOPIDOGREL 75 MG TABLET PO SCH (09:20)
[2019-03-15] MEDS: INSULIN GLARGINE 100 UNITS/ML, PEN SQ-INSULIN SCH (09:20)
[2019-03-15] MEDS: CALCIUM/VITAMIN D3 250-125 TABLET PO SCH (09:21)
[2019-03-15] MEDS: ISOSORBIDE MONONITRATE ER 30 MG TABLET PO SCH (09:21)
[2019-03-15] MEDS: ASPIRIN 81 MG TABLET EC PO SCH (09:21)
[2019-03-15] MEDS: DOXAZOSIN 1MG TABLET PO SCH (09:21)
[2019-03-15] MEDS: CHOLECALCIFEROL 1,000 UNIT TABLET PO SCH (09:21)
[2019-03-15 12:49] VITALS: BP 148/77
[2019-03-15] MEDS ORDERED: FERR-51 PO (14:27)
[2019-03-15 15:52] VITALS: BP 133/77
== END 2019-03-15 17:30 | disposition home or self-care (01) | DRG 638 ==
LOC: ED 17:13 → EDIP 18:09 → CCU 19:15 → 4NE 03-14 11:01
PROVIDERS: ADMIT Internal Medicine; ATTEND Internal Medicine
DX: E11.10 Type 2 diabetes mellitus with ketoacidosis without coma (principal); I50.32 Chronic diastolic (congestive) heart failure; I13.0 Hypertensive heart and chronic kidney disease with heart failure and stage 1 through stage 4 chronic kidney disease, or unspecified chronic kidney disease; E11.22 Type 2 diabetes mellitus with diabetic chronic kidney disease; E78.5 Hyperlipidemia, unspecified; I25.10 Atherosclerotic heart disease of native coronary artery without angina pectoris; E03.9 Hypothyroidism, unspecified; I05.2 Rheumatic mitral stenosis with insufficiency; I27.20 Pulmonary hypertension, unspecified; N18.3 Chronic kidney disease, stage 3 (moderate); Z96.641 Presence of right artificial hip joint; D50.9 Iron deficiency anemia, unspecified; E11.21 Type 2 diabetes mellitus with diabetic nephropathy; F32.9 Major depressive disorder, single episode, unspecified; M81.0 Age-related osteoporosis without current pathological fracture; N18.9 Chronic kidney disease, unspecified; Z79.02 Long term (current) use of antithrombotics/antiplatelets; Z79.4 Long term (current) use of insulin; I25.2 Old myocardial infarction; Z79.890 Hormone replacement therapy; Z82.49 Family history of ischemic heart disease and other diseases of the circulatory system; Z90.710 Acquired absence of both cervix and uterus; Z83.3 Family history of diabetes mellitus; Z95.5 Presence of coronary angioplasty implant and graft; Z90.49 Acquired absence of other specified parts of digestive tract; Z79.82 Long term (current) use of aspirin; Z79.899 Other long term (current) drug therapy; Z88.6 Allergy status to analgesic agent; Z88.2 Allergy status to sulfonamides; Z88.8 Allergy status to other drugs, medicaments and biological substances
CPT/HCPCS: 36415; 71045; 80048; 80053; 81003; 82010; 82803; 82947; 82962; 83690; 83930; 84484; 85025; 87040; 87081; 93005; 99291; G0378; J1815; J2405; J3480; J7030; J7040; J7050; J7120

== ENCOUNTER 2019-04-01 12:10 | Inpatient (IN) | payer MEDICARE, OTHER ==
[~2019-04-01] VITALS: Ht 157.5 cm; Wt 62.1 kg
[~2019-04-01 12:10] MED LIST changes: +FERR-51 PO; +LOSA50TA14 PO
--- NOTE | 2019-04-01 12:15 | NUR ---
PT BIB [facility] FOR C/O N/V/D AND GEN WEAKNESS X 2 DAYS. PT THOUGHT SHE HAD THE STOMACH FLU. DENIES FEVERS. + BODY ACHES. NO BLOOD IN STOOL OR EMESIS. ALSO C/O EPIGASTRIC ABD PAIN THAT STARTED BEFORE N/V/D. HAS C/O FEELING DIZZY/LIGHTHEADED. DENIES SYNCOPE. VS CHIEF LIBRARIAN EXTENSION DEPARTMENT BP 90/50 GIVEN 250 ML NS NOW 100/60, HR 80, 94% RA. WAS ADMITTED FOR DKA 1 MONTH AGO PER EMS. EKG COMPLETED. WARM BLANKET PROVIDED. MONITORS APPLIED. ERP DR. CARCAMO AT BEDSIDE.
[2019-04-01] MEDS ORDERED: FAMOTIDINE 20 MG/2 ML ONE (12:23)
[2019-04-01] MEDS ORDERED: ONDANSETRON 2MG/ML, 2ML ONE (12:23)
[2019-04-01] MEDS ORDERED: SODIUM CHLORIDE 0.9% 1,000ML IVBOLUS ONE ×2 (12:30→15:00)
[2019-04-01] MEDS ORDERED: PLEASE ENTER HEIGHT AND WEIGHT MC SCH (12:30)
[2019-04-01] MEDS ORDERED: ONDANSETRON 2MG/ML, 2ML IVPush ONE (12:30)
[2019-04-01] MEDS ORDERED: FAMOTIDINE 20 MG/2 ML IVPush ONE (12:30)
[2019-04-01] MEDS ORDERED: SODIUM CHLORIDE FLUSH 10ML SYR IVF ONE (12:30)
[2019-04-01 12:32] LABS: BASOPHILS # (AUTO) 0.04 x10^3/uL (0-0.1); BASOPHILS % (AUTO) 1 % (0-1); EOSINOPHILS % (AUTO) 0 % (1-7); LYMPHOCYTES # (AUTO) 0.99 x10^3/uL (1-3.4); LYMPHOCYTES % (AUTO) 14 % (22-44); MD NO; MEAN CORPUSCULAR HEMOGLOBIN 23.6 pg (27.0-34.8); MEAN CORPUSCULAR HGB CONC 31.5 g/dL (32.4-35.8); MEAN PLATELET VOLUME 8.4 fL (7.4-10.4); MONOCYTES # (AUTO) 0.49 x10^3/uL (0.2-0.8); MONOCYTES % (AUTO) 7 % (2-9); NEUTROPHILS % (AUTO) 78 % (42-75); PLATELET COUNT 199 x10^3/uL (130-400); RED BLOOD COUNT 4.58 x10^6/uL (3.82-5.3); RED CELL DISTRIBUTION WIDTH 17.5 % (9.6-15.2)
--- NOTE | 2019-04-01 12:37 | NUR ---
PT TAKEN TO XR IN STABLE CONDITION.
[2019-04-01 12:44] LABS: ALANINE AMINOTRANSFERASE 12 U/L (12-78); ALBUMIN 3.2 g/dL (3.4-5.0); ANION GAP 10 mmol/L (5-15); CALCIUM 9.2 mg/dL (8.5-10.1); CHLORIDE 105 mmol/L (98-107); CREATININE 1.26 mg/dL (0.55-1.02)
[2019-04-01 12:46] LABS: ALKALINE PHOSPHATASE 98 U/L (45-117); BILIRUBIN,TOTAL 0.8 mg/dL (0.2-1.0); TOTAL PROTEIN 6.8 g/dL (6.4-8.2)
--- NOTE | 2019-04-01 12:57 | NUR ---
HR NOTED TO BE INCREASED TO 168-180. EKG COMPLETED. ERP DR. CARCAMO NOTIFIED.
[2019-04-01] MEDS ORDERED: DILTIAZEM 5 MG/ML, 5ML ONE ×2 (13:01→13:07)
--- NOTE | 2019-04-01 13:05 | NUR ---
ERP DR. CARCAMO AT BEDSIDE. ORDERS FOR 20 MG DILTIAZEM. MEDICATION ADMINISTERED. ERP REMAINS AT BEDSIDE.
--- NOTE | 2019-04-01 13:15 | NUR ---
2ND DOSE OF DILTIAZEM 20 MG GIVEN PER ERP DR. CARCAMO. PT HR REMAINS HIGH AT 133-151
[2019-04-01] MEDS ORDERED: CALCIUM GLUCONATE 4.6 MEQ/10 ML ONE (13:21)
--- NOTE | 2019-04-01 13:29 | NUR ---
PER ERP GIVE CALCIUM GLUCONATE FOR DILT PUSHES GIVEN PRIOR AND DROPPING HR. PT MEDICATED PER MAY.
[2019-04-01] MEDS ORDERED: CALCIUM GLUCONATE 4.6 MEQ in SODIUM CHLORIDE 0.9% 50 ML IV ONE (13:30)
[2019-04-01] MEDS ORDERED: CALCIUM GLUCONATE 0.46MEQ/1ML IVPush ONE (13:30)
[2019-04-01] MEDS ORDERED: AMIODARONE 50 MG/ML, 3ML IVPush ONE ×3 (13:30→16:30)
[2019-04-01] MEDS ORDERED: DILTIAZEM 5 MG/ML, 5ML IV ONE ×2 (13:30)
[2019-04-01] MEDS ORDERED: AMIODARONE 50 MG/ML, 3ML ONE ×2 (13:31→13:43)
--- NOTE | 2019-04-01 13:35 | NUR ---
PER ERP SPOKE W/ CARDIOLOGY AND TO GIVE 150 MG AMIODARONE. MEDICATED PER MAY.
--- NOTE | 2019-04-01 13:46 | NUR ---
SECOND DOSE AMIODARONE 150 MG GIVEN PER ERP. MEDICATED PER MAY.
[2019-04-01 14:00] LABS: FREE T4 (FREE THYROXINE) 1.46 ng/dL (0.76-1.46)
--- NOTE | 2019-04-01 14:00 | NUR ---
SPOKE W/ ERP DR. CARCAMO IN REGARDS TO PT'S O2 SATS REQUIRING 10 L OXYMASK TO MAINTAIN SATS 88-90%. ALSO DISCUSSED PT'S HR AND BP. PER ERP HAVE PT MOVED TO TRAUMA ROOM. SPOKE W/ BRITTNEE, PRODUCT SAFETY MANAGER. PT MOVED TO T3.
[2019-04-01] MEDS ORDERED: MIDAZOLAM 1 MG/ML, 2ML ONE (14:01)
[2019-04-01] MEDS ORDERED: HEPARIN 25,000 UNITS/500ML PMX 500 ML ONE (14:04)
[2019-04-01] MEDS ORDERED: HEPARIN 5,000 UNITS/ML, 1ML ONE (14:04)
--- NOTE | 2019-04-01 14:10 | NUR ---
PER ERP SPOKE W/ CARDIOLOGY AND TO HOLD OFF ON CARDIOVERSION AT THIS TIME AND TO INITIATE HEPARIN GTT AND AMIODARONE GTT.
[2019-04-01] MEDS ORDERED: AMIODARONE 900 MG in DEXTROSE 5% 482 ML IV SCH (14:13)
[2019-04-01] MEDS: HEPARIN 25,000 UNITS/500ML PMX 500 ML IV PRN (14:13)
[2019-04-01] MEDS ORDERED: FILTER 0.22 MICRON IV SCH (14:30)
[2019-04-01] MEDS ORDERED: MIDAZOLAM 1 MG/ML, 5ML IVPush ONE (14:30)
[2019-04-01] MEDS ORDERED: HEPARIN 25,000 UNITS/500ML PMX 500 ML IV PRN (14:30)
[2019-04-01] MEDS ORDERED: HEPARIN 5,000 UNITS/ML, 1ML IV PRN (14:30)
[2019-04-01] MEDS ORDERED: HEPARIN 5,000 UNITS/ML, 1ML IV ONE ×2 (14:30)
[2019-04-01] MEDS ORDERED: POTASSIUM CHLORIDE 20 MEQ in SODIUM CHLORIDE 0.9% 1,000 ML IV ONE (14:32)
[2019-04-01] MEDS ORDERED: NS + 20MEQ KCL 1,000 ML IV ONE (14:48)
[2019-04-01] MEDS ORDERED: SODIUM CHLORIDE FLUSH 10ML SYR IVF PRN (15:00)
--- NOTE | 2019-04-01 15:10 | NUR ---
SEE PAPER CHART FOR VS.
--- NOTE | 2019-04-01 15:12 | NUR ---
REPORT GIVEN TO SNEHAL CASEY.
[2019-04-01] MEDS ORDERED: ONDANSETRON 2MG/ML, 2ML IVPush PRN (16:00)
[2019-04-01] MEDS ORDERED: DOCUSATE 100 MG CAPSULE PO PRN (16:00)
[2019-04-01] MEDS ORDERED: AMIODARONE 900 MG in DEXTROSE 5% 482 ML IV PRN (16:00)
[2019-04-01] MEDS ORDERED: BISACODYL 10 MG SUPP PR PRN (16:00)
[2019-04-01] MEDS ORDERED: METOCLOPRAMIDE 5 MG/ML, 2ML IVPush PRN (16:00)
[2019-04-01] MEDS ORDERED: POLYETHYLENE GLYCOL 17 GM PACKET PO PRN (16:00)
--- NOTE | 2019-04-01 16:07 | NUR ---
Pt resting eyes closed at this time. Opens eyes to V. denies CP or SOB. Dr. Bishop to BS
[2019-04-01] MEDS ORDERED: FILTER 0.22 MICRON FOR AMIODARONE IV PRN (16:30)
--- NOTE | 2019-04-01 16:36 | NUR ---
Lights dimmed for comfort, call light within reach, no needs at this time.
--- NOTE | 2019-04-01 17:20 | NUR ---
Critical K+ & trop called from lab.
--- NOTE | 2019-04-01 17:21 | NUR ---
NS w/ 20K+ stopped
--- NOTE | 2019-04-01 17:23 | NUR ---
Critical K+8.7, 4hr ago K+ was 2.9. Pt remains in A-fib 120's-130's, has had no rhythm changes. Dr. Alatorre aware & informed Dr. Coronado. Stat redraw ordered from lab.
--- NOTE | 2019-04-01 17:32 | NUR ---
Troponin added to stat redraw to confirm results. NS w/ Kcl will remain off until results back.
--- NOTE | 2019-04-01 18:01 | NUR ---
Dr. Alatorre informed of current K+ & trop levels. He is informing Dr. Coronado. NS w/ K restarted, await further orders.
--- NOTE | 2019-04-01 18:16 | NUR ---
No further interventions at this time. HR 115-135 a-fib, all other VS WNL. Pt resting comfortably, call light within reach, no needs at this time. Awaiting ICU bed assignment.
--- NOTE | 2019-04-01 18:48 | NUR ---
Bedside SBAR report to SNEHAL Trivedi.
--- NOTE | 2019-04-01 19:19 | NUR ---
REPORT RECEIVED AND CARE ASSUMED. PT DENIES COMPLAINTS AT THIS TIME OTHER THAN MILD SANCHEZ. PT RAPID AFIB ON MONITOR 130S-140S. OTHERWISE VSS. IV INFUSIONS VERIFIED. PT HAS HX OF IDDM--STATES TAKES 16 UNITS LANTUS IN AM AND 8UNITS IN PM. ALSO TAKES 8UNITS NOVOLOG IN AM, 4 UNITS WITH LUNCH, AND 4 UNITS HS. NO DM ORDERS HAVE BEEN PLACED. DISCUSSED WITH ONCOMING MD, DR BARBOSA. ORDERS FOR LOW DOSE SLIDING SCALE HUMOLOG RECEIVED. FSBS CHECKED 267. REPORT HAS BEEN CALLED AND PT TO BE TRANSFERED TO FLOOR.
[2019-04-01] MEDS: SODIUM CHLORIDE 0.9% 1,000 ML IV SCH (20:30)
[2019-04-01] MEDS: FERROUS SULFATE 325 MG TABLET PO SCH (20:31)
[2019-04-01] MEDS: INSULIN LISPRO 100 UNITS/ML, PEN SQ-INSULIN SCH (20:49)
[2019-04-01] MEDS: HEPARIN 5,000 UNITS/ML, 1ML IV PRN (21:02)
[2019-04-02 03:46] LABS: ALANINE AMINOTRANSFERASE 12 U/L (12-78); ALBUMIN 2.7 g/dL (3.4-5.0); ANION GAP 7 mmol/L (5-15); CALCIUM 8.6 mg/dL (8.5-10.1); CHLORIDE 111 mmol/L (98-107)
[2019-04-02 03:50] LABS: BASOPHILS # (AUTO) 0.02 x10^3/uL (0-0.1); BASOPHILS % (AUTO) 1 % (0-1); EOSINOPHILS # (AUTO) 0.03 x10^3/uL (0-0.4); EOSINOPHILS % (AUTO) 1 % (1-7); LYMPHOCYTES # (AUTO) 1.36 x10^3/uL (1-3.4); LYMPHOCYTES % (AUTO) 29 % (22-44); MD NO; MEAN PLATELET VOLUME 8.8 fL (7.4-10.4); MONOCYTES # (AUTO) 0.52 x10^3/uL (0.2-0.8); MONOCYTES % (AUTO) 11 % (2-9); NEUTROPHILS % (AUTO) 59 % (42-75); PLATELET COUNT 152 x10^3/uL (130-400); RED BLOOD COUNT 3.98 x10^6/uL (3.82-5.3)
[2019-04-02] MEDS: HEPARIN 5,000 UNITS/ML, 1ML IV PRN ×2 (03:52→19:55)
[2019-04-02 03:55] LABS: ALKALINE PHOSPHATASE 77 U/L (45-117); BILIRUBIN,TOTAL 0.5 mg/dL (0.2-1.0); CHOL/HDL RATIO 2.4; CHOLESTEROL, TOTAL 125 mg/dL (140-239); CREATININE 1.06 mg/dL (0.55-1.02); HDL CHOL % 42 % (28-40); HDL CHOLESTEROL (DIRECT) 52 mg/dL (40-60); LDL CHOLESTEROL,CALCULATED 49 mg/dL (54-169); LDL/HDL RATIO 0.9 (0.5-3.0); TOTAL PROTEIN 5.9 g/dL (6.4-8.2); TRIGLYCERIDES 121 mg/dL (50-200); VLDL CHOLESTEROL 24 mg/dL (0-25)
[2019-04-02 04:00] VITALS: BP 121/59
[2019-04-02] MEDS: SODIUM CHLORIDE 0.9% 1,000 ML IV SCH ×3 (04:54→20:30)
[2019-04-02] MEDS: ACETAMINOPHEN 325 MG TABLET PO PRN ×2 (05:54→17:24)
[2019-04-02] MEDS: LEVOTHYROXINE 125 MCG TABLET PO SCH (05:54)
[2019-04-02] MEDS: PROMETHAZINE 25 MG/ML, 1ML IM PRN (06:03)
[2019-04-02] MEDS ORDERED: METO25TA35 PO (06:11)
[2019-04-02] MEDS ORDERED: LEVO137T2 PO (06:14)
[2019-04-02] MEDS: INSULIN LISPRO 100 UNITS/ML, PEN SQ-INSULIN SCH ×4 (06:29→21:00)
[2019-04-02] MEDS ORDERED: GLUCAGON 1 MG IM PRN (06:30)
[2019-04-02] MEDS ORDERED: DEXTROSE 4 GM TAB.CHEW PO PRN (06:30)
[2019-04-02 07:23] LABS: CULTURE INDICATED? YES; MICROSCOPIC INDICATED
[2019-04-02] MEDS: DEXTROSE 50%, 50ML SYRINGE IVPush PRN (08:28)
[2019-04-02] MEDS: FERROUS SULFATE 325 MG TABLET PO SCH ×2 (08:36→17:24)
[2019-04-02] MEDS: CLOPIDOGREL 75 MG TABLET PO SCH (08:36)
[2019-04-02] MEDS: ASPIRIN 81 MG TABLET EC PO SCH (08:36)
[2019-04-02] MEDS: PAROXETINE HCL 25 MG PO SCH (08:37)
[2019-04-02] MEDS: SODIUM CHLORIDE FLUSH 10ML SYR IVF SCH ×2 (08:37→22:06)
[2019-04-02] MEDS: D5%-0.45NACL+KCL 40MEQ 1,000 ML IV SCH (15:54)
[2019-04-02 16:55] VITALS: BP 145/78
[2019-04-02] MEDS: METOPROLOL TARTRATE 50 MG TABLET PO SCH (17:25)
[2019-04-02] MEDS: HEPARIN 25,000 UNITS/500ML PMX 500 ML IV PRN (19:56)
[2019-04-03] MEDS: PROMETHAZINE 25 MG/ML, 1ML IM PRN (00:13)
[2019-04-03 01:08] VITALS: BP 174/85
[2019-04-03 02:26] LABS: BASOPHILS # (AUTO) 0.03 x10^3/uL (0-0.1); BASOPHILS % (AUTO) 1 % (0-1); EOSINOPHILS # (AUTO) 0.04 x10^3/uL (0-0.4); EOSINOPHILS % (AUTO) 1 % (1-7); LYMPHOCYTES # (AUTO) 0.54 x10^3/uL (1-3.4); LYMPHOCYTES % (AUTO) 10 % (22-44); MD NO; MEAN CORPUSCULAR HEMOGLOBIN 23.5 pg (27.0-34.8); MEAN CORPUSCULAR HGB CONC 30.5 g/dL (32.4-35.8); MEAN CORPUSCULAR VOLUME 77.1 fL (80-100); MEAN PLATELET VOLUME 9.6 fL (7.4-10.4); MONOCYTES # (AUTO) 0.31 x10^3/uL (0.2-0.8); MONOCYTES % (AUTO) 6 % (2-9); NEUTROPHILS # (AUTO) 4.59 x10^3/uL (1.8-6.8); NEUTROPHILS % (AUTO) 83 % (42-75); PLATELET COUNT 142 x10^3/uL (130-400); RED BLOOD COUNT 4.32 x10^6/uL (3.82-5.3); RED CELL DISTRIBUTION WIDTH 18.7 % (9.6-15.2)
[2019-04-03 02:36] LABS: ALANINE AMINOTRANSFERASE 28 U/L (12-78); ALBUMIN 2.6 g/dL (3.4-5.0); ANION GAP 8 mmol/L (5-15); CALCIUM 8.6 mg/dL (8.5-10.1); CHLORIDE 112 mmol/L (98-107); CREATININE 0.97 mg/dL (0.55-1.02)
[2019-04-03 02:39] LABS: ALKALINE PHOSPHATASE 102 U/L (45-117); BILIRUBIN,TOTAL 0.5 mg/dL (0.2-1.0); TOTAL PROTEIN 6.1 g/dL (6.4-8.2)
[2019-04-03 02:46] VITALS: BP 145/68
[2019-04-03] MEDS: SODIUM CHLORIDE 0.9% 1,000 ML IV SCH ×4 (04:30→18:39)
[2019-04-03] MEDS: D5%-0.45NACL+KCL 40MEQ 1,000 ML IV SCH (05:58)
[2019-04-03] MEDS: METOPROLOL TARTRATE 50 MG TABLET PO SCH ×2 (06:29→17:11)
[2019-04-03] MEDS: LEVOTHYROXINE 125 MCG TABLET PO SCH (06:29)
[2019-04-03 08:40] LABS: ANION GAP 7 mmol/L (5-15); CALCIUM 8.7 mg/dL (8.5-10.1); CHLORIDE 109 mmol/L (98-107); CREATININE 1.11 mg/dL (0.55-1.02)
[2019-04-03] MEDS: CLOPIDOGREL 75 MG TABLET PO SCH (09:36)
[2019-04-03] MEDS: FERROUS SULFATE 325 MG TABLET PO SCH ×2 (09:36→17:12)
[2019-04-03] MEDS: ASPIRIN 81 MG TABLET EC PO SCH (09:36)
[2019-04-03] MEDS: PAROXETINE HCL 25 MG PO SCH (09:37)
[2019-04-03] MEDS: SODIUM CHLORIDE FLUSH 10ML SYR IVF SCH ×3 (09:37→21:57)
[2019-04-03 09:52] VITALS: BP 153/81
[2019-04-03] MEDS: INSULIN LISPRO 100 UNITS/ML, PEN SQ-INSULIN SCH ×4 (09:58→21:57)
[2019-04-03] MEDS ORDERED: SODIUM CHLORIDE 0.9% 1,000 ML IV SCH (11:00)
[2019-04-03] MEDS ORDERED: GLUCAGON 1 MG IM PRN (12:30)
[2019-04-03] MEDS ORDERED: DEXTROSE 4 GM TAB.CHEW PO PRN (12:30)
[2019-04-03] MEDS ORDERED: INSULIN GLARGINE 100 UNITS/ML, PEN SQ-INSULIN ONE (12:30)
[2019-04-03] MEDS ORDERED: DEXTROSE 50%, 50ML SYRINGE IVPush PRN (12:30)
[2019-04-03] MEDS: ACETAMINOPHEN 325 MG TABLET PO PRN ×3 (14:17→22:15)
[2019-04-03 17:02] VITALS: BP 157/74
[2019-04-03 20:00] VITALS: BP 147/73
[2019-04-03] MEDS: INSULIN GLARGINE 100 UNITS/ML, PEN SQ-INSULIN SCH (22:01)
[2019-04-03] MEDS: HEPARIN 25,000 UNITS/500ML PMX 500 ML IV PRN (23:59)
[2019-04-04] MEDS: SODIUM CHLORIDE 0.9% 1,000 ML IV SCH ×4 (00:48→16:51)
[2019-04-04 02:00] VITALS: BP 151/75
[2019-04-04] MEDS ORDERED: HEPARIN 25,000 UNITS/250ML PMX 250 ML IV PRN (04:30)
[2019-04-04] MEDS ORDERED: HEPARIN 5,000 UNITS/ML, 1ML IV PRN (04:30)
[2019-04-04 05:14] LABS: ANION GAP 4 mmol/L (5-15); BASOPHILS # (AUTO) 0.04 x10^3/uL (0-0.1); BASOPHILS % (AUTO) 1 % (0-1); CALCIUM 9.1 mg/dL (8.5-10.1); CHLORIDE 115 mmol/L (98-107); EOSINOPHILS # (AUTO) 0.03 x10^3/uL (0-0.4); EOSINOPHILS % (AUTO) 1 % (1-7); LYMPHOCYTES # (AUTO) 1.29 x10^3/uL (1-3.4); LYMPHOCYTES % (AUTO) 26 % (22-44); MD NO; MEAN CORPUSCULAR HEMOGLOBIN 23.8 pg (27.0-34.8); MEAN CORPUSCULAR HGB CONC 31.3 g/dL (32.4-35.8); MEAN CORPUSCULAR VOLUME 76.1 fL (80-100); MEAN PLATELET VOLUME 9.6 fL (7.4-10.4); MONOCYTES % (AUTO) 10 % (2-9); NEUTROPHILS # (AUTO) 3.18 x10^3/uL (1.8-6.8); NEUTROPHILS % (AUTO) 63 % (42-75); PLATELET COUNT 171 x10^3/uL (130-400); RED BLOOD COUNT 4.24 x10^6/uL (3.82-5.3); RED CELL DISTRIBUTION WIDTH 18.4 % (9.6-15.2)
[2019-04-04 05:17] LABS: CREATININE 0.96 mg/dL (0.55-1.02)
[2019-04-04] MEDS: LEVOTHYROXINE 125 MCG TABLET PO SCH (05:44)
[2019-04-04] MEDS: DEXTROSE 50%, 50ML SYRINGE IVPush PRN (05:46)
[2019-04-04] MEDS: INSULIN LISPRO 100 UNITS/ML, PEN SQ-INSULIN SCH ×4 (08:28→21:28)
[2019-04-04] MEDS: INSULIN GLARGINE 100 UNITS/ML, PEN SQ-INSULIN SCH ×2 (08:29→21:24)
[2019-04-04 09:25] VITALS: BP 150/69
[2019-04-04] MEDS: ASPIRIN 81 MG TABLET EC PO SCH (09:33)
[2019-04-04] MEDS: CLOPIDOGREL 75 MG TABLET PO SCH (09:34)
[2019-04-04] MEDS: FERROUS SULFATE 325 MG TABLET PO SCH ×2 (09:34→16:51)
[2019-04-04] MEDS: SODIUM CHLORIDE FLUSH 10ML SYR IVF SCH ×4 (09:34→21:23)
[2019-04-04] MEDS: PAROXETINE HCL 25 MG PO SCH (09:35)
[2019-04-04] MEDS: METOPROLOL TARTRATE 50 MG TABLET PO SCH ×2 (10:49→16:51)
[2019-04-04] MEDS ORDERED: FENTANYL PF 100 MCG/2ML ONE (11:43)
[2019-04-04] MEDS ORDERED: HEPARIN 1,000 UNITS/ML, 10ML ONE (11:43)
[2019-04-04] MEDS ORDERED: NITROGLYCERIN 5 MG/ML, 10ML ONE (11:43)
[2019-04-04] MEDS ORDERED: LIDOCAINE 2%, 20ML ONE (11:43)
[2019-04-04] MEDS ORDERED: VERAPAMIL 2.5 MG/ML, 2ML ONE (11:43)
[2019-04-04] MEDS ORDERED: TICAGRELOR 90 MG TABLET ONE (11:43)
[2019-04-04] MEDS ORDERED: MIDAZOLAM 1 MG/ML, 5ML ONE (11:43)
[2019-04-04] MEDS ORDERED: BIVALIRUDIN 250 MG ONE (11:43)
[2019-04-04] MEDS ORDERED: METOCLOPRAMIDE 5 MG/ML, 2ML IVPush PRN (17:30)
[2019-04-04 21:21] VITALS: BP 150/78
[2019-04-04] MEDS: ACETAMINOPHEN 325 MG TABLET PO PRN (23:19)
[2019-04-05 03:00] VITALS: BP 150/76
[2019-04-05] MEDS: SODIUM CHLORIDE 0.9% 1,000 ML IV SCH ×2 (05:25→17:29)
[2019-04-05] MEDS: METOPROLOL TARTRATE 50 MG TABLET PO SCH ×2 (05:25→17:29)
[2019-04-05] MEDS: LEVOTHYROXINE 125 MCG TABLET PO SCH (05:25)
[2019-04-05 06:20] LABS: BASOPHILS # (AUTO) 0.03 x10^3/uL (0-0.1); BASOPHILS % (AUTO) 1 % (0-1); EOSINOPHILS # (AUTO) 0.01 x10^3/uL (0-0.4); EOSINOPHILS % (AUTO) 0 % (1-7); LYMPHOCYTES # (AUTO) 1.13 x10^3/uL (1-3.4); LYMPHOCYTES % (AUTO) 25 % (22-44); MD NO; MEAN CORPUSCULAR HEMOGLOBIN 24.4 pg (27.0-34.8); MEAN CORPUSCULAR HGB CONC 31.7 g/dL (32.4-35.8); MEAN CORPUSCULAR VOLUME 76.9 fL (80-100); MEAN PLATELET VOLUME 9.3 fL (7.4-10.4); MONOCYTES % (AUTO) 11 % (2-9); NEUTROPHILS # (AUTO) 2.84 x10^3/uL (1.8-6.8); NEUTROPHILS % (AUTO) 63 % (42-75); PLATELET COUNT 137 x10^3/uL (130-400); RED BLOOD COUNT 3.92 x10^6/uL (3.82-5.3); RED CELL DISTRIBUTION WIDTH 19.1 % (9.6-15.2)
[2019-04-05 06:32] LABS: ANION GAP 6 mmol/L (5-15); CALCIUM 8.8 mg/dL (8.5-10.1); CHLORIDE 115 mmol/L (98-107)
[2019-04-05 06:33] LABS: CREATININE 0.81 mg/dL (0.55-1.02)
[2019-04-05] MEDS: DEXTROSE 50%, 50ML SYRINGE IVPush PRN (06:56)
[2019-04-05 07:06] VITALS: BP 151/89
[2019-04-05] MEDS: INSULIN LISPRO 100 UNITS/ML, PEN SQ-INSULIN SCH ×4 (07:56→21:28)
[2019-04-05] MEDS: INSULIN GLARGINE 100 UNITS/ML, PEN SQ-INSULIN SCH ×2 (07:57→21:42)
[2019-04-05] MEDS: SODIUM CHLORIDE FLUSH 10ML SYR IVF SCH ×4 (09:01→21:42)
[2019-04-05] MEDS: PAROXETINE HCL 25 MG PO SCH (09:01)
[2019-04-05 09:13] VITALS: BP 177/82
[2019-04-05] MEDS: ASPIRIN 81 MG TABLET EC PO SCH (09:18)
[2019-04-05] MEDS: CLOPIDOGREL 75 MG TABLET PO SCH (09:18)
[2019-04-05] MEDS: FERROUS SULFATE 325 MG TABLET PO SCH ×2 (09:19→17:30)
[2019-04-05] MEDS ORDERED: NITROGLYCERIN 0.4 MG/SPRAY SL PRN (09:30)
[2019-04-05] MEDS ORDERED: NITROGLYCERIN 0.4 MG BOTTLE (25 TABS) SL PRN (09:30)
[2019-04-05] MEDS: ISOSORBIDE MONONITRATE ER 30 MG TABLET PO SCH (11:01)
[2019-04-05] MEDS: CALCIUM CARBONATE 500 MG TAB.CHEW PO PRN ×2 (12:38→16:47)
[2019-04-05 12:55] VITALS: BP 168/77
[2019-04-05] MEDS ORDERED: ALUMINUM/MAG/SIMETHICONE 30 ML UDC PO PRN (18:00)
[2019-04-05 20:22] VITALS: BP 103/78
[2019-04-05] MEDS: ACETAMINOPHEN 325 MG TABLET PO PRN (21:41)
[2019-04-06 02:24] VITALS: BP 171/79
[2019-04-06 03:24] VITALS: BP 162/77
[2019-04-06 05:52] VITALS: BP 128/69
[2019-04-06] MEDS: METOPROLOL TARTRATE 50 MG TABLET PO SCH (05:56)
[2019-04-06] MEDS: LEVOTHYROXINE 125 MCG TABLET PO SCH (05:56)
[2019-04-06] MEDS: SODIUM CHLORIDE 0.9% 1,000 ML IV SCH (06:20)
[2019-04-06 06:42] VITALS: BP_SYST 108; BP_SYST 164; BP_DIAS 73; BP_DIAS 76
[2019-04-06 06:48] LABS: BASOPHILS # (AUTO) 0.03 x10^3/uL (0-0.1); BASOPHILS % (AUTO) 1 % (0-1); EOSINOPHILS # (AUTO) 0.03 x10^3/uL (0-0.4); EOSINOPHILS % (AUTO) 1 % (1-7); LYMPHOCYTES # (AUTO) 1.04 x10^3/uL (1-3.4); LYMPHOCYTES % (AUTO) 27 % (22-44); MD NO; MEAN CORPUSCULAR HEMOGLOBIN 24.5 pg (27.0-34.8); MEAN CORPUSCULAR HGB CONC 31.5 g/dL (32.4-35.8); MEAN CORPUSCULAR VOLUME 77.8 fL (80-100); MEAN PLATELET VOLUME 9.2 fL (7.4-10.4); MONOCYTES # (AUTO) 0.37 x10^3/uL (0.2-0.8); MONOCYTES % (AUTO) 10 % (2-9); NEUTROPHILS % (AUTO) 62 % (42-75); PLATELET COUNT 131 x10^3/uL (130-400); RED BLOOD COUNT 3.87 x10^6/uL (3.82-5.3); RED CELL DISTRIBUTION WIDTH 20.2 % (9.6-15.2)
[2019-04-06 07:00] LABS: ANION GAP 7 mmol/L (5-15); CALCIUM 8.6 mg/dL (8.5-10.1); CHLORIDE 116 mmol/L (98-107); CREATININE 0.82 mg/dL (0.55-1.02)
[2019-04-06] MEDS: INSULIN LISPRO 100 UNITS/ML, PEN SQ-INSULIN SCH ×2 (07:33→13:09)
[2019-04-06] MEDS: FERROUS SULFATE 325 MG TABLET PO SCH (08:02)
[2019-04-06] MEDS: ASPIRIN 81 MG TABLET EC PO SCH (08:02)
[2019-04-06] MEDS: ISOSORBIDE MONONITRATE ER 30 MG TABLET PO SCH (08:02)
[2019-04-06] MEDS: CLOPIDOGREL 75 MG TABLET PO SCH (08:02)
[2019-04-06] MEDS: INSULIN GLARGINE 100 UNITS/ML, PEN SQ-INSULIN SCH (08:03)
[2019-04-06] MEDS: PAROXETINE HCL 25 MG PO SCH (08:03)
[2019-04-06] MEDS: SODIUM CHLORIDE FLUSH 10ML SYR IVF SCH ×2 (08:04)
[2019-04-06] MEDS ORDERED: METO50TA82 PO (11:02)
[2019-04-06] MEDS: ACETAMINOPHEN 325 MG TABLET PO PRN (13:08)
[2019-04-06 14:07] VITALS: BP 179/80
[2019-04-06 14:20] VITALS: BP 167/82
== END 2019-04-06 15:54 | disposition home health service (06) | DRG 280 ==
LOC: ED 12:18 → SUATTDRO 15:42 → EDIP 15:58 → CCU 19:37 → 5SO 04-02 16:56
PROVIDERS: ADMIT Internal Medicine; ATTEND Internal Medicine
PROC: 4A023N7 Measurement of Cardiac Sampling and Pressure, Left Heart, Percutaneous Approach (ICD-10-PCS; principal; 2019-04-04)
PROC: B211YZZ Fluoroscopy of Multiple Coronary Arteries using Other Contrast (ICD-10-PCS; 2019-04-04)
PROC: B215YZZ Fluoroscopy of Left Heart using Other Contrast (ICD-10-PCS; 2019-04-04)
DX: I21.4 Non-ST elevation (NSTEMI) myocardial infarction (principal); N17.0 Acute kidney failure with tubular necrosis; R57.9 Shock, unspecified; D68.69 Other thrombophilia; I48.92 Unspecified atrial flutter; I13.0 Hypertensive heart and chronic kidney disease with heart failure and stage 1 through stage 4 chronic kidney disease, or unspecified chronic kidney disease; I50.32 Chronic diastolic (congestive) heart failure; I48.0 Paroxysmal atrial fibrillation; E87.6 Hypokalemia; Z88.8 Allergy status to other drugs, medicaments and biological substances; D53.9 Nutritional anemia, unspecified; E03.9 Hypothyroidism, unspecified; E11.22 Type 2 diabetes mellitus with diabetic chronic kidney disease; E11.649 Type 2 diabetes mellitus with hypoglycemia without coma; E78.5 Hyperlipidemia, unspecified; F32.9 Major depressive disorder, single episode, unspecified; I08.0 Rheumatic disorders of both mitral and aortic valves; I25.10 Atherosclerotic heart disease of native coronary artery without angina pectoris; I27.81 Cor pulmonale (chronic); M81.0 Age-related osteoporosis without current pathological fracture; N18.3 Chronic kidney disease, stage 3 (moderate); Z66 Do not resuscitate; Z79.4 Long term (current) use of insulin; Z82.3 Family history of stroke; Z82.49 Family history of ischemic heart disease and other diseases of the circulatory system; Z83.3 Family history of diabetes mellitus; Z87.891 Personal history of nicotine dependence; Z95.5 Presence of coronary angioplasty implant and graft; Z96.641 Presence of right artificial hip joint; I27.29 Other secondary pulmonary hypertension
CPT/HCPCS: 36415; 74022; 80048; 80053; 80061; 81001; 82947; 82962; 83690; 83735; 84100; 84132; 84439; 84443; 84484; 85025; 85520; 87081; 87086; 93005; 93306; 93458; 96361; 96374; 96375; 99156; C1760; C1769; C1894; G0378; J0583; J0610; J1644; J2250; J2405; J2550; J3010; J3480; J0282; J1815; J3490; J7030; J7060; Q9967